=== PATIENT | female | born 1945 | race Caucasian/White ===

== ENCOUNTER 2018-03-11 09:20 | Day surgery (SDC) | payer MEDICARE, BC ==
[2018-03-11] MEDS ORDERED: Sodium Chloride 0.9% 5 ML Syringe FLUSH PRN (10:00)
[2018-03-11] MEDS ORDERED: Lactated Ringers 1,000 ML IV SCH (10:00)
[2018-03-11] MEDS ORDERED: Midazolam 1 MG/ML 2 ML SDV ONE (10:48)
[2018-03-11] MEDS ORDERED: Propofol 200 MG/20 ML SDV ONE ×2 (10:48→11:10)
[2018-03-11] MEDS ORDERED: Propofol 200 MG/20 ML SDV IV ONE (11:50)
[2018-03-11] MEDS ORDERED: Midazolam 1 MG/ML 2 ML SDV IV ONE (11:50)
--- NOTE | 2018-03-11 12:20 | PCM.OPNOTE ---
- General Post-Op/Procedure Note Date of Surgery/Procedure: 03/11/18 Operative Procedure(s): Colonoscopy, attempted. Findings: Possible stricture at the sigmoid colon Pre Op Diagnosis: Hemoccult-positive stool constipation Post-Op Diagnosis: Possible stricture the sigmoid colon Anesthesia Technique: MAC Primary Surgeon: Kalee Bynum Complications: None Condition: Good Free Text/Narrative:: INFORMED CONSENT: Patient is here today for elective colonoscopy. All aspects of this procedure have been discussed with the patient. All possible complications also, including possibility of perforation, infection, pain, bleeding and unknown complications. In the event of perforation patient may need to have abdominal exploration, colon resection, colostomy and even was discussed. Anesthetic complications were handled by anesthesia department. The patient understands fully well. Patient did not have any further questions for me at the end of my interview. The patient wishes for me to proceed. PREOPERATIVE DIAGNOSIS/INDICATIONS: [Hemoccult-positive stool and constipation screening colonoscopy, last colonoscopy 10 years ago] POSTOPERATIVE DIAGNOSIS: [Suspect stricture at the sigmoid colon or severe spasm] INSTRUMENT USED: Olympus videocolonoscope. ASA CLASSIFICATION: [2] ANESTHESIA: Continuous EKG, oximetry and intermittent blood pressure and respiratory monitoring were performed throughout the procedure. IV Versed and Fentanyl were administered. PROCEDURE PERFORMED: Colonoscopy POSITIONS OF PATIENT: Left lateral. RECTUM: Normal. SIGMOID COLON: A very tight area was noted approximately 30 cm from anal margin. Could not advance the scope beyond this area. The patient give a history of having had diverticulitis. TOLERANCE: Excellent. COMPLICATIONS: None. Final diagnosis: Suspect stricture or severe spasm at the sigmoid colon.
[2018-03-11 13:20] VITALS: BP 126/48
== END 2018-03-11 13:15 | disposition home or self-care (01) ==
LOC: KA.SDS 09:20
PROVIDERS: ATTEND Family Medicine
DX: R19.5 Other fecal abnormalities (principal); K59.00 Constipation, unspecified; K63.89 Other specified diseases of intestine; I10 Essential (primary) hypertension; J45.909 Unspecified asthma, uncomplicated; J41.0 Simple chronic bronchitis; F41.9 Anxiety disorder, unspecified; E78.5 Hyperlipidemia, unspecified; Z86.010 Personal history of colon polyps; Z79.82 Long term (current) use of aspirin; Z79.899 Other long term (current) drug therapy; Z88.8 Allergy status to other drugs, medicaments and biological substances; Z88.1 Allergy status to other antibiotic agents
CPT/HCPCS: 45330; J2250; J2704; J7120; 00812

== ENCOUNTER 2018-04-22 18:47 | Emergency (ER) | payer MEDICARE, BC ==
[2018-04-22] MEDS ORDERED: Albuterol/Ipratropium 3.0-0.5 MG/3 ML Neb Soln ONE (19:06)
[2018-04-22] MEDS ORDERED: Albuterol/Ipratropium 3.0-0.5 MG/3 ML Neb Soln NEB ONE (19:08)
[2018-04-22 19:13] VITALS: BP 155/73
[2018-04-22] MEDS ORDERED: methylPREDNISolone Sodium Succinate 125 MG/2 ML SDV IVPUSH ONE (19:40)
--- NOTE | 2018-04-22 19:46 | EDM.PDOC ---
ED HPI GENERAL MEDICAL PROBLEM - General Chief Complaint: Respiratory Problem Stated Complaint: asthma attack?? hard to breath Time Seen by Provider: 04/22/18 19:29 Source of Information: Reports: Patient History Limitations: Reports: No Limitations - History of Present Illness INITIAL COMMENTS - FREE TEXT/NARRATIVE: Patient presents with cough for 3 days. Today is worse she says. She has been using Mucinex which is helping loosen it up a little. She has asthma and says she typically gets a flare like this every Fall. She uses albuterol inhaler and albuterol neb at home. Nebs 1-2/day for maintenance and more often if needed. She has been using more the last few days. She says she usually gets prednisone for attacks like this. - Related Data Allergies Allergy/AdvReac Type Severity Reaction Status Date / Time cefdinir [From Omnicef] Allergy Diarrhea Verified 04/22/18 19:06 Nlfumxf-Vgi-Lel Reductase Allergy Cannot Verified 04/22/18 19:06 Inhibitor Remember Home Meds: Home Meds Albuterol [Ventolin HFA] 1 - 2 puff INH Q4HR PRN 10/05/14 [History] Albuterol/Ipratropium [DuoNeb 3.0-0.5 MG/3 ML] 3 ml NEB QID PRN 10/05/14 [ History] Aspirin [Halfprin] 81 mg PO DAILY 10/05/14 [History] Cholecalciferol (Vitamin D3) [Vitamin D3] 1,000 unit PO DAILY 10/05/14 [History] Fenofibrate 160 mg PO DAILY 10/05/14 [History] [place]-3/DHA/Epa/Fish Oil [[place]-3 Fish Oil 1,000 MG Sfgl] 1,000 mg PO DAILY 04/13 [History] Potassium Chloride [K-Tab ER] 10 meq PO DAILY 10/05/14 [History] hydroCHLOROthiazide [Hydrochlorothiazide] 25 mg PO DAILY 10/05/14 [History] Losartan [Cozaar] 25 mg PO DAILY 01/05/15 [History] Colestipol [Colestipol HCl] 1 gm PO DAILY 03/07/18 [History] Past Medical History HEENT History: Reports: Hard of Hearing, Impaired Vision Cardiovascular History: Reports: Hypertension Respiratory History: Reports: Asthma Gastrointestinal History: Reports: None Genitourinary History: Reports: Other (See Below) Other Genitourinary History: uterine bleeding,cervical polyp removal 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: Dysfunctional Uterine Bleeding, , Other (See Below) Other SIDEWALK INSPECTOR History: uterine mass Endocrine/Metabolic History: Reports: [place]'s Disease Hematologic History: Reports: Other (See Below) Other Hematologic History: uterine bleeding - Infectious Disease History Infectious Disease History: Reports: Measles, Mumps - Past Surgical History Head Surgeries/Procedures: Reports: None HEENT Surgical History: Reports: Other (See Below) Other HEENT Surgeries/Procedures: wisdom teeth Cardiovascular Surgical History: Reports: None Respiratory Surgical History: Reports: None GI Surgical History: Reports: Colonoscopy Female Surgical History: Reports: Other (See Below) Other Female Surgeries/Procedures: biopsy of uterine mass Endocrine Surgical History: Reports: None Dermatological Surgical History: Reports: None Social & Family History - Family History Family Medical History: Noncontributory - Caffeine Use Caffeine Use: Reports: Coffee, Soda, Tea ED ROS GENERAL - Review of Systems Review Of Systems: See Below Constitutional: Denies: Fever, Chills, Malaise, Weakness HEENT: Reports: No Symptoms. Denies: Ear Pain, Throat Pain Respiratory: Reports: Shortness of Breath, Wheezing (a little), Cough, Sputum Cardiovascular: Denies: Chest Pain, Lightheadedness, Syncope Endocrine: Reports: No Symptoms GI/Abdominal: Reports: No Symptoms : Reports: No Symptoms Musculoskeletal: Denies: Neck Pain, Shoulder Pain, Arm Pain, Back Pain, Hand Pain Skin: Denies: Cyanosis, Jaundice, Mottled, Pallor, Diaphoresis Neurological: Denies: Confusion, Dizziness, Headache, Seizure, Syncope, Difficulty Walking, Change in Speech Psychiatric: Denies: Agitation, Anxiety, Confusion ED EXAM, GENERAL - Physical Exam Exam: See Below Exam Limited By: No Limitations General Appearance: Alert, WD/WN, No Apparent Distress Eye Exam: Bilateral Eye: EOMI, Normal Inspection, PERRL Ears: Normal External Exam, Hearing Grossly Normal Nose: Normal Inspection, No Blood Throat/Mouth: Normal Inspection, Normal Lips, Normal Oropharynx, Normal Voice, No Airway Compromise Head: Atraumatic, Normocephalic Neck: Normal Inspection, Full Range of Motion Respiratory/Chest: No Respiratory Distress, Lungs Clear, Wheezing (slight left lung). No: Crackles, Rales, Rhonchi, Stridor, Accessory Muscle Use, Retractions Cardiovascular: Regular Rate, Rhythm, No Murmur GI/Abdominal: No Distention Back Exam: Normal Inspection, Full Range of Motion. No: CVA Tenderness (L), CVA Tenderness (R) Extremities: Normal Inspection, Normal Range of Motion Neurological: Alert, Oriented, Normal Cognition, No Motor/Sensory Deficits Psychiatric: Normal Affect, Normal Mood Skin Exam: Warm, Dry, Intact, Normal Color, No Rash Course - Vital Signs Last Recorded V/S: Last Vital Signs Temp 99.1 F 04/22/18 18:55 Pulse 90 04/22/18 18:55 Resp 22 H 04/22/18 18:55 BP 155/73 H 04/22/18 18:55 Pulse Ox 93 L 04/22/18 19:08 - Orders/Labs/Meds Orders: Active Orders 24 hr Category Date Time Status RT Aerosol Therapy [RC] ASDIRECTED Care 04/22/18 19:08 Active CXR [Chest 2V] [CR] Stat Exams 04/22/18 19:07 Taken Labs: Laboratory Tests 04/22/18 04/22/18 Range/Units 19:49 19:49 WBC 12.10 H (5.00-10.00) 10^3/uL RBC 4.63 (3.80-5.50) 10^6/uL Hgb 14.0 (12.0-16.0) g/dL Hct 42.3 (37.0-47.0) % MCV 91.4 (82.0-92.0) fL MCH 30.2 (27.0-31.0) pg MCHC 33.1 (32.0-36.0) g/dL RDW 12.7 (11.5-14.5) % Plt Count 462 H (150-400) 10^3/uL MPV 9.0 (7.4-10.4) fL Immature Gran % (Auto) 0.2 (0.0-5.0) % Neut % (Auto) 59.7 (50.0-70.0) % Lymph % (Auto) 29.1 (20.0-40.0) % [place] % (Auto) 7.7 (2.0-8.0) % Eos % (Auto) 2.6 (1.0-3.0) % Baso % (Auto) 0.7 (0.0-1.0) % Immature Gran # (Auto) 0.02 (0.00-0.50) 10^3/uL Neut # (Auto) 7.23 H (2.50-7.00) 10^3/uL Lymph # (Auto) 3.52 (1.00-4.00) 10^3/uL [place] # (Auto) 0.93 H (0.10-0.80) 10^3/uL Eos # (Auto) 0.32 H (0.10-0.30) 10^3/uL Baso # (Auto) 0.08 (0.00-0.10) 10^3/uL Sodium 141 (136-145) mmol/L Potassium 3.8 (3.3-5.3) mmol/L Chloride 102 (98-115) mmol/L Carbon Dioxide 25.9 (21.0-32.0) mmol/L Anion Gap 16.9 H (5-15) mmol/L BUN 20 (6-25) mg/dL Creatinine 0.75 (0.51-1.17) mg/dL Est Cr Clr Drug Dosing 62.80 mL/min Estimated GFR (MDRD) > 60 mL/min Glucose 123 mg/dL Calcium 9.9 (8.7-10.3) mg/dL Meds: Medications Discontinued Medications Generic Name Dose Route Start Last Admin Trade Name Freq PRN Reason Stop Dose Admin Albuterol/Ipratropium Confirm 04/22/18 19:06 04/22/18 19:28 Duoneb 3.0-0.5 Mg/3 Ml Administered 04/22/18 19:07 3 ml Dose Administration 3 ml .ROUTE .STK-MED ONE Albuterol/Ipratropium 3 ml 04/22/18 19:08 04/22/18 19:28 Duoneb 3.0-0.5 Mg/3 Ml NEB 04/22/18 19:09 Not Given ONETIME ONE Azithromycin 500 mg 04/22/18 20:40 04/22/18 21:16 Zithromax PO 04/22/18 20:41 500 mg ONETIME ONE Administration Methylprednisolone Sodium Succinate 125 mg 04/22/18 19:40 04/22/18 20:13 Solu-Medrol IVPUSH 04/22/18 19:41 125 mg ONETIME ONE Administration - Re-Assessments/Exams Free Text/Narrative Re-Assessment/Exam: 04/22/18 20:38 WBC is 12.1 which is at the low end of where she has been the last 5-6 checks but warrants antibiotic prophylaxis I feel. Will do Z-pack and prednisone. 04/22/18 21:20 O2 sats steady at 90% on RA. Discussed that this is the low end of where we want her to be and that she should come back if worsening. Discussed findings and treatment plan with patient and she is discharged in stable condition. Departure - Departure Time of Disposition: 21:18 Disposition: Home, Self-Care 01 Condition: Good Clinical Impression: Exacerbation of asthma Asthma Qualifiers: Asthma severity: mild Asthma persistence: unspecified Asthma complication type : unspecified Qualified Code(s): J45.998 - Other asthma Acute bronchitis Qualifiers: Bronchitis organism: unspecified organism Qualified Code(s): J20.9 - Acute bronchitis, unspecified - Discharge Information Instructions: Asthma, Adult, Acute Bronchitis, Adult Referrals: Alma Cade PA-C [Primary Care Provider] - Forms: ED Department Discharge Additional Instructions: 1. Drink 8 cups of water daily. 2. Take the medications as directed. 3. Follow up with your PCP or return to ER as needed if worsening. - My Orders Last 24 Hours: My Active Orders 04/22/18 19:07 CXR [Chest 2V] [CR] Stat 04/22/18 19:08 RT Aerosol Therapy [RC] ASDIRECTED - Assessment/Plan Last 24 Hours: My Active Orders 04/22/18 19:07 CXR [Chest 2V] [CR] Stat 04/22/18 19:08 RT Aerosol Therapy [RC] ASDIRECTED
[2018-04-22 20:22] LABS: ANION GAP 16.9 mmol/L (5-15); CHLORIDE,CL 102 mmol/L (98-115); SODIUM,NA 141 mmol/L (136-145)
[2018-04-22] MEDS ORDERED: Azithromycin 250 MG Tab PO ONE (20:40)
== END 2018-04-22 21:30 | disposition home or self-care (01) ==
LOC: KA.ED 18:47
DX: J45.901 Unspecified asthma with (acute) exacerbation (principal); J20.9 Acute bronchitis, unspecified
CPT/HCPCS: 36415; 71046; 80048; 85025; 94640; 96374; 99284; 99285; A9270-GY; J2930; J7620-GY

== ENCOUNTER 2019-08-31 09:14 | Emergency (ER) | payer MEDICARE, BC ==
[2019-08-31] MEDS ORDERED: Albuterol/Ipratropium 3.0-0.5 MG/3 ML Neb Soln ONE (09:20)
[2019-08-31] MEDS ORDERED: Albuterol/Ipratropium 3.0-0.5 MG/3 ML Neb Soln NEB ONE ×2 (09:20→11:26)
[2019-08-31 09:32] VITALS: BP 118/63
--- NOTE | 2019-08-31 10:22 | CR ---
[id number] RAD/RAD Chest PA And Lateral EXAM: RAD Chest PA And Lateral INDICATION: SHORTNESS OF BREATH, COUGH. COMPARISON: April 22, 2018. DISCUSSION: Cardiomediastinal silhouette is normal in size and contour. No infiltrate, effusion, pneumothorax, or edema. Pulmonary hyperinflation. IMPRESSION: No acute cardiopulmonary abnormality. Cory Campbell DO 08/31/19 1021 Thank you for allowing us to participate in the care of your patient.
--- NOTE | 2019-08-31 10:23 | EDM.PDOC ---
ED HPI GENERAL MEDICAL PROBLEM - General Chief Complaint: General Stated Complaint: BAD COUGH Time Seen by Provider: 08/31/19 09:30 Source of Information: Reports: Patient - History of Present Illness INITIAL COMMENTS - FREE TEXT/NARRATIVE: 74-year-old female presents emergency room with a history of 48 hour complaint of increasing shortness of breath, cough and wheezing. He denies any fever chills nausea or vomiting. She was unable to get into her primary care Sunday at the end of the day. She was plan on make an appointment this Sunday. Her symptoms seem to gradually worsened to the point where she was having increasing difficulty moving air despite doing her nebulizer treatment. She denies any significant sinus congestion, no ear pain, no sore throat. Onset: Gradual Onset Date: 09/12/19 Duration: Day(s):, Getting Worse Location: Reports: Chest Severity: Moderate Improves with: Reports: Other (Neb treatments) Worsens with: Reports: None Associated Symptoms: Reports: Cough, Shortness of Breath. Denies: Fever/Chills , Nausea/Vomiting Treatments CARD MOUNTER: Reports: Other (see below) (Neb treatments) - Related Data Allergies Allergy/AdvReac Type Severity Reaction Status Date / Time cefdinir [From Omnicef] Allergy Diarrhea Verified 04/22/18 19:06 Henfqlq-Wlj-Gho Reductase Allergy Cannot Verified 04/22/18 19:06 Inhibitor Remember Home Meds: Home Meds Albuterol [Ventolin HFA] 2 puff INH Q4HR PRN 10/05/14 [History] Albuterol/Ipratropium [DuoNeb 3.0-0.5 MG/3 ML] 3 ml NEB QID PRN 10/05/14 [ History] Aspirin [Halfprin] 81 mg PO DAILY 10/05/14 [History] Cholecalciferol (Vitamin D3) [Vitamin D3] 1,000 unit PO DAILY 10/05/14 [History] Fenofibrate 160 mg PO DAILY 10/05/14 [History] [place]-3/DHA/Epa/Fish Oil [[place]-3 Fish Oil 1,000 MG Sfgl] 1,000 mg PO DAILY 04/13 [History] Potassium Chloride [K-Tab ER] 10 meq PO DAILY 10/05/14 [History] hydroCHLOROthiazide [Hydrochlorothiazide] 25 mg PO DAILY 03/09/15 [History] Losartan [Cozaar] 25 mg PO DAILY 01/05/15 [History] Colestipol [Colestipol HCl] 1 gm PO DAILY 03/07/18 [History] predniSONE [Prednisone] 40 mg PO DAILY #10 tablet 08/31/19 [Rx] Past Medical History HEENT History: Reports: Hard of Hearing, Impaired Vision Cardiovascular History: Reports: Hypertension Respiratory History: Reports: Asthma Gastrointestinal History: Reports: None Genitourinary History: Reports: Other (See Below) Other Genitourinary History: uterine bleeding,cervical polyp removal 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: Dysfunctional Uterine Bleeding, , Other (See Below) 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 History: uterine mass Endocrine/Metabolic History: Reports: [place]'s Disease Hematologic History: Reports: Other (See Below) Other Hematologic History: uterine bleeding - Infectious Disease History Infectious Disease History: Reports: Measles, Mumps - Past Surgical History Head Surgeries/Procedures: Reports: None HEENT Surgical History: Reports: Other (See Below) Other HEENT Surgeries/Procedures: wisdom teeth Cardiovascular Surgical History: Reports: None Respiratory Surgical History: Reports: None GI Surgical History: Reports: Colonoscopy Female Surgical History: Reports: Other (See Below) Other Female Surgeries/Procedures: biopsy of uterine mass Endocrine Surgical History: Reports: None Dermatological Surgical History: Reports: None Social & Family History - Family History Family Medical History: Noncontributory - Tobacco Use Smoking Status *Q: Former Smoker Used Tobacco, but Quit: Yes Month/Year Tobacco Last Used: quit 30 years ago Second Hand Smoke Exposure: No - Caffeine Use Caffeine Use: Reports: Coffee, Soda, Tea - Recreational Drug Use Recreational Drug Use: No ED ROS GENERAL - Review of Systems Review Of Systems: See Below Constitutional: Reports: No Symptoms HEENT: Reports: Glasses Respiratory: Reports: Shortness of Breath, Wheezing, Cough Cardiovascular: Denies: Chest Pain, Blood Pressure Problem Endocrine: Reports: No Symptoms GI/Abdominal: Reports: No Symptoms : Reports: No Symptoms Musculoskeletal: Reports: No Symptoms Skin: Reports: No Symptoms Neurological: Reports: No Symptoms Psychiatric: Reports: No Symptoms Hematologic/Lymphatic: Reports: No Symptoms Immunologic: Reports: No Symptoms ED EXAM, GENERAL - Physical Exam Exam: See Below Exam Limited By: No Limitations General Appearance: Alert, WD/WN, No Apparent Distress Eye Exam: Bilateral Eye: EOMI, PERRL Ears: Normal External Exam, Normal Canal, Normal TMs, Hearing Loss Ear Exam: Bilateral Ear: Canal Normal, TM normal Nose: Normal Inspection, Normal Mucosa Throat/Mouth: Normal Inspection, Normal Lips, Normal Oropharynx, Normal Voice, No Airway Compromise Head: Atraumatic, Normocephalic Neck: Normal Inspection, Supple, Non-Tender, Full Range of Motion. No: Lymphadenopathy (L), Lymphadenopathy (R) Respiratory/Chest: No Respiratory Distress, Decreased Breath Sounds. No: Crackles, Rales, Rhonchi, Wheezing Cardiovascular: Normal Peripheral Pulses, Regular Rate, Rhythm, No Edema GI/Abdominal: Normal Bowel Sounds, Soft Extremities: Normal Inspection, Normal Range of Motion Neurological: Alert, Oriented, No Motor/Sensory Deficits Psychiatric: Normal Affect, Normal Mood Skin Exam: Warm, Dry, Intact, Normal Color, No Rash Lymphatic: No Adenopathy Course - Vital Signs Last Recorded V/S: Last Vital Signs Temp 99.0 F 08/31/19 09:29 Pulse 95 08/31/19 10:47 Resp 20 08/31/19 09:29 BP 118/63 08/31/19 09:29 Pulse Ox 97 08/31/19 09:29 - Orders/Labs/Meds Orders: Active Orders 24 hr Category Date Time Status RT Aerosol Therapy [RC] ASDIRECTED Care 08/31/19 09:28 Active RT Aerosol Therapy [RC] ASDIRECTED Care 08/31/19 10:30 Active RT Aerosol Therapy [RC] ASDIRECTED Care 08/31/19 11:26 Active Labs: Laboratory Tests 08/31/19 08/31/19 Range/Units 09:55 09:55 WBC 8.37 (5.00-10.00) 10^3/uL RBC 4.52 (3.80-5.50) 10^6/uL Hgb 13.3 (12.0-16.0) g/dL Hct 40.2 (37.0-47.0) % MCV 88.9 (82.0-92.0) fL MCH 29.4 (27.0-31.0) pg MCHC 33.1 (32.0-36.0) g/dL RDW 12.7 (11.5-14.5) % Plt Count 422 H (150-400) 10^3/uL MPV 8.9 (7.4-10.4) fL Immature Gran % (Auto) 0.1 (0.0-5.0) % Neut % (Auto) 60.3 (50.0-70.0) % Lymph % (Auto) 25.9 (20.0-40.0) % [place] % (Auto) 10.2 H (2.0-8.0) % Eos % (Auto) 2.4 (1.0-3.0) % Baso % (Auto) 1.1 H (0.0-1.0) % Immature Gran # (Auto) 0.01 (0.00-0.50) 10^3/uL Neut # (Auto) 5.05 (2.50-7.00) 10^3/uL Lymph # (Auto) 2.17 (1.00-4.00) 10^3/uL [place] # (Auto) 0.85 H (0.10-0.80) 10^3/uL Eos # (Auto) 0.20 (0.10-0.30) 10^3/uL Baso # (Auto) 0.09 (0.00-0.10) 10^3/uL Sodium 138 (136-145) mmol/L Potassium 3.3 (3.3-5.3) mmol/L Chloride 99 (98-115) mmol/L Carbon Dioxide 25.8 (21.0-32.0) mmol/L Anion Gap 16.5 H (5-15) mmol/L BUN 13 (6-25) mg/dL Creatinine 0.52 (0.51-1.17) mg/dL Est Cr Clr Drug Dosing 88.00 mL/min Estimated GFR (MDRD) > 60 mL/min Glucose 130 H (75 - 99) mg/dL Calcium 9.5 (8.7-10.3) mg/dL Meds: Medications Discontinued Medications Generic Name Dose Route Start Last Admin Trade Name Freq PRN Reason Stop Dose Admin Albuterol 2.5 mg 08/31/19 10:30 08/31/19 10:40 Proventil Neb Soln NEB 08/31/19 10:31 2.5 mg ONETIME ONE Administration Albuterol/Ipratropium Confirm 08/31/19 09:20 08/31/19 10:03 Duoneb 3.0-0.5 Mg/3 Ml Administered 02/02/20 09:21 Not Given Dose 3 ml .ROUTE .STK-MED ONE Albuterol/Ipratropium 3 ml 08/31/19 09:20 08/31/19 09:20 Duoneb 3.0-0.5 Mg/3 Ml NEB 08/31/19 09:21 3 ml ONETIME ONE Administration Albuterol/Ipratropium 3 ml 08/31/19 11:26 08/31/19 11:51 Duoneb 3.0-0.5 Mg/3 Ml NEB 08/31/19 11:27 3 ml ONETIME ONE Administration Methylprednisolone Sodium Succinate 125 mg 08/31/19 10:29 08/31/19 10:40 Solu-Medrol IVPUSH 08/31/19 10:30 125 mg ONETIME ONE Administration - Radiology Interpretation Free Text/Narrative:: CXR: findings: Cardiomediastinal silhouette is normal in size and contour. No infiltrate, effusion, pneumothorax, or edema. Pulmonary hyperinflation Impression: No acute cardiopulmonary abnormality CT Results Date: 08/31/19 Departure - Departure Time of Disposition: 12:05 Disposition: Home, Self-Care 01 Condition: Good Clinical Impression: Asthma with acute exacerbation Qualifiers: Asthma severity: moderate Asthma persistence: unspecified Qualified Code(s): J45.901 - Unspecified asthma with (acute) exacerbation - Discharge Information Prescriptions: predniSONE [Prednisone] 40 mg PO DAILY #10 tablet Instructions: Asthma Attack Referrals: Alma Cade PA-C [Primary Care Provider] - Forms: ED Department Discharge Sepsis Event Note - Evaluation Sepsis Screening Result: No Definite Risk - Focused Exam Vital Signs: Vital Signs Temp Pulse Resp BP Pulse Ox 08/31/19 10:47 95 08/31/19 09:29 99.0 F 104 H 20 118/63 97 08/31/19 09:28 108 H Date Exam was Performed: 08/31/19 Time Exam was Performed: 12:05 - My Orders Last 24 Hours: My Active Orders 08/31/19 09:28 RT Aerosol Therapy [RC] ASDIRECTED 08/31/19 10:30 RT Aerosol Therapy [RC] ASDIRECTED 08/31/19 11:26 RT Aerosol Therapy [RC] ASDIRECTED - Assessment/Plan Last 24 Hours: My Active Orders 08/31/19 09:28 RT Aerosol Therapy [RC] ASDIRECTED 08/31/19 10:30 RT Aerosol Therapy [RC] ASDIRECTED 08/31/19 11:26 RT Aerosol Therapy [RC] ASDIRECTED Assessment:: asthma exacerbation Plan: 1. Duo nebs every 4 hours while awake over the next 24 hours 2. Prednisone 40 mg daily for 5 days. 3. Follow-up with your primary care next week for recheck 4. Return back to the emergency room if breathing, shortness of breath worsens despite duo neb treatments.
[2019-08-31 10:27] LABS: ANION GAP 16.5 mmol/L (5-15); CHLORIDE,CL 99 mmol/L (98-115); SODIUM,NA 138 mmol/L (136-145)
[2019-08-31] MEDS ORDERED: methylPREDNISolone Sodium Succinate 125 MG/2 ML SDV IVPUSH ONE (10:29)
[2019-08-31] MEDS ORDERED: Albuterol 0.083% 2.5 MG/3 ML Neb Soln NEB ONE (10:30)
[2019-08-31 10:55] VITALS: PULSE 95
== END 2019-08-31 12:10 | disposition home or self-care (01) ==
LOC: KA.ED 09:14
DX: J45.901 Unspecified asthma with (acute) exacerbation (principal); I10 Essential (primary) hypertension; Z79.82 Long term (current) use of aspirin; Z79.899 Other long term (current) drug therapy; Z87.891 Personal history of nicotine dependence; Z88.1 Allergy status to other antibiotic agents; Z88.8 Allergy status to other drugs, medicaments and biological substances
CPT/HCPCS: 71046; 80048; 85025; 87804; 94640; 96374; 99284; 99285-25; J2930; J7613-GY; J7620-GY

== ENCOUNTER 2019-09-03 08:27 | Inpatient (IN) | payer MEDICARE, BC ==
[2019-09-03] MEDS ORDERED: Dexamethasone 4 MG/ML SDV IVPUSH ONE (09:17)
[2019-09-03] MEDS ORDERED: Sodium Chloride 0.9% 1,000 ML IV ONE (09:17)
--- NOTE | 2019-09-03 09:19 | CR ---
[id number] RAD/RAD Chest PA And Lateral EXAM: RAD Chest PA And Lateral INDICATION: SHORTNESS OF BREATH. COMPARISON: August 31, 2019. DISCUSSION: Cardiomediastinal silhouette is unchanged from the prior examination. COPD. Subsegmental atelectasis in the right middle and/or upper lobe not seen previously. No infiltrate, effusion, pneumothorax, or edema. IMPRESSION: No acute findings. Other findings are described. Viral Schuler MD 09/03/19 0918 Thank you for allowing us to participate in the care of your patient.
[2019-09-03] MEDS: Sodium Chloride 0.9% 10 ML Syringe FLUSH PRN (09:21)
--- NOTE | 2019-09-03 09:51 | EDM.PDOC ---
ED HPI GENERAL MEDICAL PROBLEM - General Chief Complaint: Respiratory Problem Stated Complaint: SOB Time Seen by Provider: 09/03/19 09:17 Source of Information: Reports: Patient History Limitations: Reports: No Limitations - History of Present Illness INITIAL COMMENTS - FREE TEXT/NARRATIVE: Patient is a 74-year-old female who presents to the emergency department via private vehicle for complaint of shortness of breath. Patient was seen in the emergency department August 31 for similar symptoms. Patient was treated with nebulizer treatments, improved, and was discharged home. Patient states that symptoms persisted. She did 4 breathing treatments this morning with little to no relief. Patient presents to the emergency Department with an oxygen saturation of 86% on room air. Patient required 4 L nasal cannula to improve. Oxygen saturation of 91-92%. Patient was found to be tachycardic with mild tachypnea. Patient does have a long history of asthma. Patient denies chest pain, fever, out of country travel, nausea, vomiting, diarrhea, abdominal pain, lower extremity edema, or change to medication. Onset: Gradual Duration: Day(s): Severity: Moderate Improves with: Reports: None Worsens with: Reports: None Context: Reports: Other (At rest) Associated Symptoms: Reports: Cough, Shortness of Breath. Denies: Chest Pain, cough w sputum, Diaphoresis, Fever/Chills, Headaches, Nausea/Vomiting, Syncope, Weakness Treatments SAP BI ARCHITECT: Reports: Breathing Treatments, Home Treatments - Related Data Allergies Allergy/AdvReac Type Severity Reaction Status Date / Time cefdinir [From Omnicef] Allergy Diarrhea Verified 09/03/19 09:05 Tblzmyg-Frb-Ick Reductase Allergy Cannot Verified 09/03/19 09:05 Inhibitor Remember Home Meds: Home Meds Albuterol [Ventolin HFA] 2 puff INH Q4HR PRN 10/05/14 [History] Albuterol/Ipratropium [DuoNeb 3.0-0.5 MG/3 ML] 3 ml NEB QID PRN 10/05/14 [ History] Aspirin [Halfprin] 81 mg PO DAILY 10/05/14 [History] Cholecalciferol (Vitamin D3) [Vitamin D3] 1,000 unit PO DAILY 10/05/14 [History] Fenofibrate 160 mg PO DAILY 10/05/14 [History] [place]-3/DHA/Epa/Fish Oil [[place]-3 Fish Oil 1,000 MG Sfgl] 1,000 mg PO DAILY 04/13 [History] Potassium Chloride [K-Tab ER] 10 meq PO DAILY 10/05/14 [History] hydroCHLOROthiazide [Hydrochlorothiazide] 25 mg PO DAILY 10/05/14 [History] Losartan [Cozaar] 25 mg PO DAILY 01/05/15 [History] Colestipol [Colestipol HCl] 1 gm PO DAILY 03/07/18 [History] Past Medical History HEENT History: Reports: Hard of Hearing, Impaired Vision Cardiovascular History: Reports: Hypertension Respiratory History: Reports: Asthma Gastrointestinal History: Reports: None Genitourinary History: Reports: Other (See Below) Other Genitourinary History: uterine bleeding,cervical polyp removal [employer] 1 [employer] 5 [employer]ER History: Reports: Dysfunctional Uterine Bleeding, , Other (See Below) Other [employer] 1 [employer]RU 5 [employer]ER History: uterine mass Endocrine/Metabolic History: Reports: None Hematologic History: Reports: Other (See Below) Other Hematologic History: uterine bleeding - Infectious Disease History Infectious Disease History: Reports: Measles, Mumps - Past Surgical History Head Surgeries/Procedures: Reports: None HEENT Surgical History: Reports: Other (See Below) Other HEENT Surgeries/Procedures: wisdom teeth Cardiovascular Surgical History: Reports: None Respiratory Surgical History: Reports: None GI Surgical History: Reports: Colonoscopy Female Surgical History: Reports: Other (See Below) Other Female Surgeries/Procedures: biopsy of uterine mass Endocrine Surgical History: Reports: None Dermatological Surgical History: Reports: None Social & Family History - Family History Family Medical History: Noncontributory - Tobacco Use Smoking Status *Q: Former Smoker Used Tobacco, but Quit: No - Caffeine Use Caffeine Use: Reports: Coffee, Soda - Recreational Drug Use Recreational Drug Use: No ED ROS GENERAL - Review of Systems Review Of Systems: Comprehensive ROS is negative, except as noted in HPI. Constitutional: Reports: No Symptoms HEENT: Reports: No Symptoms Respiratory: Reports: Shortness of Breath, Wheezing, Cough Cardiovascular: Reports: No Symptoms. Denies: Chest Pain Endocrine: Reports: No Symptoms GI/Abdominal: Reports: No Symptoms : Reports: No Symptoms Musculoskeletal: Reports: No Symptoms Skin: Reports: No Symptoms Neurological: Reports: No Symptoms Psychiatric: Reports: No Symptoms Hematologic/Lymphatic: Reports: No Symptoms Immunologic: Reports: No Symptoms ED EXAM, GENERAL - Physical Exam Exam: See Below Exam Limited By: No Limitations General Appearance: Alert, WD/WN, No Apparent Distress Eye Exam: Bilateral Eye: Normal Inspection Nose: Normal Inspection, Normal Mucosa, No Blood Throat/Mouth: Normal Inspection, Normal Oropharynx, No Airway Compromise Head: Atraumatic, Normocephalic Neck: Normal Inspection, Supple, Non-Tender, Full Range of Motion. No: Lymphadenopathy (L), Lymphadenopathy (R) Respiratory/Chest: No Respiratory Distress, No Accessory Muscle Use, Chest Non- Tender, Decreased Breath Sounds (Bilateral), Wheezing (End expiratory). No: Normal Breath Sounds, Respiratory Distress Cardiovascular: Regular Rate, Rhythm, No Murmur GI/Abdominal: Normal Bowel Sounds, Soft, Non-Tender, No Organomegaly, No Distention, No Abnormal Bruit, No Mass Back Exam: Normal Inspection. No: CVA Tenderness (L), CVA Tenderness (R) Extremities: Normal Inspection, No Pedal Edema Neurological: Alert, Oriented, Normal Cognition Psychiatric: Normal Affect, Normal Mood Skin Exam: Warm, Dry, Intact, Normal Color, No Rash Lymphatic: No Adenopathy EKG INTERPRETATION EKG Date: 09/03/19 Time: 09:25 Rhythm: Other (Sinus tach) Rate (Beats/Min): 103 [place]: Normal P-Wave: Present QRS: Normal ST-T: Normal QT: Normal Comparison: No Change Course - Vital Signs Last Recorded V/S: Last Vital Signs Temp 98.7 F 09/03/19 08:30 Pulse 105 H 09/03/19 10:33 Resp 24 H 09/03/19 10:33 BP 146/75 H 09/03/19 10:33 Pulse Ox 91 L 09/03/19 10:33 - Orders/Labs/Meds Orders: Active Orders 24 hr Category Date Time Status EKG Documentation Completion [RC] ASDIRECTED Care 09/03/19 09:15 Active Peripheral IV Care [RC] . DIRECTED Care 09/03/19 09:17 Active Sodium Chloride 0.9% [Saline Flush] Med 09/03/19 09:17 Active 10 ml FLUSH Q8HR PRN Peripheral IV Insertion Adult [OM.PC] Routine Oth 09/03/19 09:17 Ordered EKG 12 Lead [EK] Routine Ther 09/03/19 09:15 Ordered Medication Orders Sodium Chloride (Saline Flush) 10 ml FLUSH Q8HR PRN PRN Reason: keep vein open Last Admin: 09/03/19 09:21 Dose: 10 ml Labs: Laboratory Tests 09/03/19 Range/Units 10:35 ABG pH 7.40 (7.35-7.45) ABG pCO2 36 (35-45) mmHG ABG pO2 63 L (80-105) mmHG ABG HCO3 22.7 (22-26) mmol/L ABG Total CO2 24 (23-27) mmol/L ABG O2 Saturation 92 L (95-98) % ABG Base Excess -2 (-2-3) mmol/L O2 Delivery Device Nasal cannula Oxygen Flow Rate 3 L/min Meds: Medications Generic Name Dose Route Start Last Admin Trade Name Freq PRN Reason Stop Dose Admin Sodium Chloride 10 ml 09/03/19 09:17 09/03/19 09:21 Saline Flush FLUSH 10 ml Q8HR PRN Administration keep vein open Discontinued Medications Generic Name Dose Route Start Last Admin Trade Name Freq PRN Reason Stop Dose Admin Dexamethasone 8 mg 09/03/19 09:17 09/03/19 09:23 Dexamethasone IVPUSH 09/03/19 09:18 8 mg ONETIME ONE Administration Sodium Chloride 1,000 mls @ 999 mls/hr 09/03/19 09:17 09/03/19 09:24 Normal Saline IV 09/03/19 10:17 999 mls/hr .BOLUS ONE Administration - Radiology Interpretation Free Text/Narrative:: 6. He shows no acute cardiopulmonary process - Re-Assessments/Exams Free Text/Narrative Re-Assessment/Exam: 09/03/19 10:22 Patient afebrile, vital signs stable, oxygen saturation 91% on 3 L nasal cannula. ABG within normal limits. Discussed case with [facility] provider. Patient will be admitted inpatient to his service. 09/03/19 10:47 Departure - Departure Time of Disposition: 10:47 Disposition: Admitted As Inpatient 68 Condition: Fair Clinical Impression: Hypoxemia Asthma with acute exacerbation Qualifiers: Asthma severity: moderate Asthma persistence: unspecified Qualified Code(s): J45.901 - Unspecified asthma with (acute) exacerbation - Discharge Information Referrals: Nurys Hinson MD [Primary Care Provider] - Forms: ED Department Discharge Sepsis Event Note - Evaluation Sepsis Screening Result: Possible Sepsis Risk - Focused Exam Vital Signs: Vital Signs Temp Pulse Resp BP Pulse Ox 09/03/19 10:33 105 H 24 H 146/75 H 91 L 09/03/19 09:35 103 H 21 H 135/92 H 91 L 09/03/19 09:20 109 H 33 H 149/81 H 93 L 09/03/19 08:55 111 H 28 H 155/75 H 91 L 09/03/19 08:30 98.7 F 130 H 29 H 157/62 H 86 L Date Exam was Performed: 09/03/19 Time Exam was Performed: 10:48 - My Orders Last 24 Hours: My Active Orders 09/03/19 09:15 EKG Documentation Completion [RC] ASDIRECTED EKG 12 Lead [EK] Routine 09/03/19 09:17 Peripheral IV Care [RC] . DIRECTED Sodium Chloride 0.9% [Saline Flush] 10 ml FLUSH Q8HR PRN Peripheral IV Insertion Adult [OM.PC] Routine - Assessment/Plan Last 24 Hours: My Active Orders 09/03/19 09:15 EKG Documentation Completion [RC] ASDIRECTED EKG 12 Lead [EK] Routine 09/03/19 09:17 Peripheral IV Care [RC] . DIRECTED Sodium Chloride 0.9% [Saline Flush] 10 ml FLUSH Q8HR PRN Peripheral IV Insertion Adult [OM.PC] Routine Assessment:: Asthma exacerbation Plan: Admit inpatient
[2019-09-03 10:40] LABS: O2 DELIVERY DEVICE NASAL CANNULA; O2 SATURATION ARTERIAL 92 % (95-98); PCO2 ARTERIAL 36 mmHG (35-45); PO2 ARTERIAL 63 mmHG (80-105)
[2019-09-03 10:41] LABS: BASE EXCESS ARTERIAL -2 mmol/L (-2-3); BICARBONATE,ARTERIAL 22.7 mmol/L (22-26); O2 FLOW RATE 3 L/min
[2019-09-03] MEDS ORDERED: Albuterol/Ipratropium 3.0-0.5 MG/3 ML Neb Soln NEB STA (11:15)
[2019-09-03] MEDS ORDERED: Magnesium Sulfate/Water 2 GM in Premix Bag 1 BAG IV ONE (11:19)
--- NOTE | 2019-09-03 11:27 | PCM.HP.2 ---
H&P History of Present Illness - General Date of Service: 09/03/19 Admit Problem/Dx: Admission Diagnosis/Problem Admission Diagnosis/Problem Asthma with acute exacerbation in adult Source of Information: Patient, Old Records, Provider, RN, Significant Other History Limitations: Reports: No Limitations. Denies: Altered Mental Status - Related Data Allergies/Adverse Reactions: Allergies Allergy/AdvReac Type Severity Reaction Status Date / Time cefdinir [From Omnicef] Allergy Diarrhea Verified 09/03/19 09:05 Flmrjcb-Rut-Tgb Reductase Allergy Cannot Verified 09/03/19 09:05 Inhibitor Remember Home Medications: Home Meds Albuterol [Ventolin HFA] 2 puff INH Q4HR PRN 10/05/14 [History] Albuterol/Ipratropium [DuoNeb 3.0-0.5 MG/3 ML] 3 ml NEB QID PRN 10/05/14 [ History] Aspirin [Halfprin] 81 mg PO DAILY 10/05/14 [History] Cholecalciferol (Vitamin D3) [Vitamin D3] 1,000 unit PO DAILY 10/05/14 [History] Fenofibrate 160 mg PO DAILY 10/05/14 [History] [place]-3/DHA/Epa/Fish Oil [[place]-3 Fish Oil 1,000 MG Sfgl] 1,000 mg PO DAILY 04/13 [History] Potassium Chloride [K-Tab ER] 10 meq PO DAILY 10/05/14 [History] hydroCHLOROthiazide [Hydrochlorothiazide] 25 mg PO DAILY 10/05/14 [History] Losartan [Cozaar] 25 mg PO DAILY 01/05/15 [History] Colestipol [Colestipol HCl] 1 gm PO DAILY 03/07/18 [History] Past Medical History HEENT History: Reports: Hard of Hearing, Impaired Vision Cardiovascular History: Reports: Hypertension Respiratory History: Reports: Asthma Gastrointestinal History: Reports: None Genitourinary History: Reports: Other (See Below) Other Genitourinary History: uterine bleeding,cervical polyp removal [employer]ENT History: Reports: Dysfunctional Uterine Bleeding, , Other (See Below) Other OB/BYN History: uterine mass Endocrine/Metabolic History: Reports: None Hematologic History: Reports: Other (See Below) Other Hematologic History: uterine bleeding - Infectious Disease History Infectious Disease History: Reports: Measles, Mumps - Past Surgical History Head Surgeries/Procedures: Reports: None HEENT Surgical History: Reports: Other (See Below) Other HEENT Surgeries/Procedures: wisdom teeth Cardiovascular Surgical History: Reports: None Respiratory Surgical History: Reports: None GI Surgical History: Reports: Colonoscopy Female Surgical History: Reports: Other (See Below) Other Female Surgeries/Procedures: biopsy of uterine mass Endocrine Surgical History: Reports: None Dermatological Surgical History: Reports: None Social & Family History - Family History Family Medical History: Noncontributory - Tobacco Use Smoking Status *Q: Former Smoker Used Tobacco, but Quit: No - Caffeine Use Caffeine Use: Reports: Coffee, Soda - Recreational Drug Use Recreational Drug Use: No H&P Review of Systems - Review of Systems: Review Of Systems: See Below General: Denies: Fever, Chills, Malaise, Weakness, Fatigue, Night Sweats HEENT: Reports: Hearing Changes (admits to muffled hearing since last ED visit ) Pulmonary: Reports: Shortness of Breath, Wheezing. Denies: Cough, Sputum, Hemoptysis Cardiovascular: Reports: No Symptoms, Dyspnea on Exertion Gastrointestinal: Reports: No Symptoms Genitourinary: Reports: No Symptoms Musculoskeletal: Reports: No Symptoms Skin: Reports: No Symptoms Psychiatric: Reports: No Symptoms Neurological: Reports: No Symptoms Immunologic: Reports: No Symptoms Exam - Exam Exam: See Below - Vital Signs Vital Signs: Last Vital Signs Temp 98.7 F 09/03/19 08:30 Pulse 105 H 09/03/19 10:33 Resp 24 H 09/03/19 10:33 BP 146/75 H 09/03/19 10:33 Pulse Ox 91 L 09/03/19 10:33 Weight: 156 lb - Exam Quality Assessment: Supplemental Oxygen General: Moderate Distress HEENT: Mucosa Moist & [place] Neck: Supple Lungs: Decreased Breath Sounds. No: Wheezing Cardiovascular: Tachycardia GI/Abdominal Exam: Normal Bowel Sounds, Soft, No Distention, No Mass. No: Distended (Female) Exam: Deferred Back Exam: No: CVA Tenderness (L), CVA Tenderness (R) Extremities: No Pedal Edema Peripheral Pulses: 2+: Radial (L), Radial (R) Skin: Dry Neurological: Cranial Nerves Intact, Reflexes Equal Bilateral Neuro Extensive - Mental Status: Alert, Oriented x3, Normal Mood/Affect, Memory Intact, Other Neuro Extensive - Motor, Sensory, Reflexes: Normal Gait Psychiatric: Anxious, Agitated - Patient Data Lab Results Last 24 hrs: Laboratory Results - last 24 hr 09/03/19 Range/Units 10:35 ABG pH 7.40 (7.35-7.45) ABG pCO2 36 (35-45) mmHG ABG pO2 63 L (80-105) mmHG ABG HCO3 22.7 (22-26) mmol/L ABG Total CO2 24 (23-27) mmol/L ABG O2 Saturation 92 L (95-98) % ABG Base Excess -2 (-2-3) mmol/L O2 Delivery Device Nasal cannula Oxygen Flow Rate 3 L/min [place] Results Last 24 hrs: Microbiology 09/03/19 08:35 Influenza Type A Antigen Screen - Final Nasopharyngeal Swab NEGATIVE INFLUENZA A VIRUS AG REFERENCE RANGE: NEGATIVE Influenza Type B Antigen Screen - Final NEGATIVE INFLUENZA B VIRUS AG REFERENCE RANGE: NEGATIVE Sepsis Event Note - Evaluation Sepsis Screening Result: Possible Sepsis Risk - Focused Exam Vital Signs: Vital Signs Temp Pulse Resp BP Pulse Ox 09/03/19 10:33 105 H 24 H 146/75 H 91 L 09/03/19 09:35 103 H 21 H 135/92 H 91 L 09/03/19 09:20 109 H 33 H 149/81 H 93 L 09/03/19 08:55 111 H 28 H 155/75 H 91 L 09/03/19 08:30 98.7 F 130 H 29 H 157/62 H 86 L Date Exam was Performed: 09/03/19 Time Exam was Performed: 11:29 Problem List Initiated/Reviewed/Updated: Yes Orders Last 24hrs: Active Orders 24 hr Category Date Time Status Patient Status [ADT] Routine ADT 09/03/19 10:48 Active EKG Documentation Completion [RC] ASDIRECTED Care 09/03/19 09:15 Active Oxygen Therapy [RC] PRN Care 09/03/19 10:48 Active Peripheral IV Care [RC] . DIRECTED Care 09/03/19 09:17 Active VTE/DVT Education [RC] PER UNIT ROUTINE Care 09/03/19 10:48 Active Vital Signs [RC] Q4H Care 09/03/19 10:48 Active Sodium Chloride 0.9% [Saline Flush] Med 09/03/19 09:17 Active 10 ml FLUSH Q8HR PRN Peripheral IV Insertion Adult [OM.PC] Routine Oth 09/03/19 09:17 Ordered Resuscitation Status Routine Resus Stat 09/03/19 10:48 Ordered EKG 12 Lead [EK] Routine Ther 09/03/19 09:15 Ordered Medication Orders Sodium Chloride (Saline Flush) 10 ml FLUSH Q8HR PRN PRN Reason: keep vein open Last Admin: 09/03/19 09:21 Dose: 10 ml Assessment/Plan Comment:: History of present illness Aayka is a 74-year-old female who was admitted through the ED due to significant shortness of breath. Patient had presented to the ED on August 31 with similar symptoms and was treated with duo nebulizers and she improved in which she was sent home to self-care however she stated that her symptoms persisted despite using her albuterol "multiple times" she does have asthma and takes short acting MIC/LAMA the form of duo nebs 4 times a day. Appears she is not on asthma control medication. At one point she was on home oxygen however she sent it back. She gets ill fall/wintertime with similar symptoms. No PFTs on file however does have current asthma control test. Does not do home PFTs. Remote smoker as a young child likely 1 to 2 years max ED evaluation Hypoxic POX 86% Tachycardia/Tachypneic ABG, pH 7.4, CO2 36, PO2 63, HCO3 23 Primary hospital problems --Asthma with acute exacerbation, significant, continuous DuoNeb's, magnesium 2 g x 1 now, oxygen support, hold off on diet, monitor for impending respiratory failure. Peak flow test 115 now. Repeat every 20 minutes.
[2019-09-03] MEDS ORDERED: Albuterol/Ipratropium 3.0-0.5 MG/3 ML Neb Soln NEB ONE ×3 (11:35→21:43)
[2019-09-03] MEDS: Sodium Chloride 0.9% 100 ML IV SCH (11:44)
[2019-09-03] MEDS: Albuterol/Ipratropium 3.0-0.5 MG/3 ML Neb Soln NEB SCH ×6 (13:25→23:56)
[2019-09-03 13:26] LABS: ANION GAP 16.8 mmol/L (5-15); CHLORIDE,CL 98 mmol/L (98-115); SODIUM,NA 137 mmol/L (136-145)
[2019-09-03] MEDS ORDERED: Acetaminophen 325 MG Tab PO PRN (16:04)
[2019-09-03] MEDS ORDERED: Albuterol/Ipratropium 3.0-0.5 MG/3 ML Neb Soln NEB SCH ×2 (20:00→23:00)
[2019-09-03] MEDS ORDERED: LORazepam 2 MG/ML SDV IVPUSH ONE (21:43)
[2019-09-03] MEDS ORDERED: LORazepam 2 MG/ML SDV ONE (21:46)
[2019-09-03] MEDS ORDERED: methylPREDNISolone Sodium Succinate 125 MG/2 ML SDV IVPUSH ONE (22:08)
[2019-09-03] MEDS ORDERED: methylPREDNISolone Sodium Succinate 125 MG/2 ML SDV ONE (22:20)
[2019-09-03 23:02] LABS: O2 DELIVERY DEVICE NASAL CANNULA
[2019-09-03 23:03] LABS: BASE EXCESS ARTERIAL 0 mmol/L (-2-3); BICARBONATE,ARTERIAL 23.7 mmol/L (22-26); O2 FLOW RATE 4 L/min; O2 SATURATION ARTERIAL 93 % (95-98); PCO2 ARTERIAL 33 mmHG (35-45); PO2 ARTERIAL 62 mmHG (80-105)
--- NOTE | 2019-09-03 23:53 | PCM.SN ---
- Free Text/Narrative Note: Call received from nursing that patient was having increased shortness of breath , poor air exchange, tripod and pursed lip breathing. Had to increase her oxygen to 4 liters via nasal cannula. Patient had just switched to DuoNebs q4h from q2h and was just 30 minutes over the 2 hour joselito. Orders given to give a DuoNeb now, solumedrol 80 mg IV x 1, lorazepam 0.25 mg IV x 1, and obtain ABGs. Nurse noted an episode of patient's pulse drop into the 60s and then a few seconds later go back up to the 110s. Provider at bedside at 2300. Diminished air flow throughout lung arm[place], no wheezing or crackles. Tachypneic, pursed lip breathing, tripod position, intercostal retractions. HR tachycardic, regular. Trace edema to BLE. Patient reports she feels a little better. ABGs similar to previous noting a respiratory alkalosis. pH 7.46, pCO2 33, pO2 62, HCO3 23.7. Placed on telemetry. D-dimer 169. BNP 165. Patient placed on simple face mask at 4 liters, however did not like this so is back on nasal cannula. Wells' Score for PE 1.5 indicating low risk. Consulted with [facility], hospitalist, Dr. Allen d/t minimal to no improvement in patient condition. He recommended giving IV antibiotics, solumedrol 60 mg IV q6h, albuterol neb q2h and/or transferring. Will trial these recommendations and also provide lorazepam 0.5 mg IV x 1 to see if this improves patient status. If no improvement or worsening of breathing, patient will be transferred to [facility]. Total time at bedside 2 hours.
[2019-09-04] MEDS ORDERED: LORazepam 2 MG/ML SDV IVPUSH ONE (00:34)
[2019-09-04] MEDS ORDERED: Albuterol/Ipratropium 3.0-0.5 MG/3 ML Neb Soln NEB SCH (01:00)
[2019-09-04] MEDS: Azithromycin 500 MG in Sodium Chloride 0.9% 250 ML IV SCH (01:25)
[2019-09-04] MEDS: Albuterol/Ipratropium 3.0-0.5 MG/3 ML Neb Soln NEB SCH ×6 (02:06→23:27)
[2019-09-04] MEDS: Albuterol 0.083% 2.5 MG/3 ML Neb Soln NEB PRN ×4 (03:55→20:03)
[2019-09-04] MEDS: methylPREDNISolone Sodium Succinate 125 MG/2 ML SDV IVPUSH SCH ×4 (04:16→23:33)
[2019-09-04] MEDS ORDERED: Albuterol 0.083% 2.5 MG/3 ML Neb Soln NEB ONE (07:55)
[2019-09-04] MEDS: Aspirin 81 MG Tab.EC PO SCH (08:40)
[2019-09-04] MEDS: Hydrochlorothiazide 25 MG Tab PO SCH (08:40)
[2019-09-04] MEDS: Potassium Chloride 10 MEQ Tab.ER PO SCH (08:40)
[2019-09-04] MEDS: Cholecalciferol (Vitamin D3) 25 MCG Tab PO SCH (08:40)
[2019-09-04] MEDS ORDERED: Losartan 25 MG Tab PO SCH (09:00)
[2019-09-04] MEDS: Fenofibrate 160 MG Tab PO SCH ×2 (09:04→09:53)
[2019-09-04] MEDS ORDERED: Losartan 25 MG Tab PO ONE (09:40)
--- NOTE | 2019-09-04 09:47 | PCM.PN ---
- General Info Date of Service: 09/04/19 - Patient Data Vitals - Most Recent: Last Vital Signs Temp 97.2 F 09/04/19 06:16 Pulse 126 H 09/04/19 08:00 Resp 24 H 09/04/19 06:16 BP 148/91 H 09/04/19 08:39 Pulse Ox 91 L 09/04/19 08:00 Weight - Most Recent: 156 lb I&O - Last 24 Hours: Intake & Output 09/03/19 09/04/19 09/04/19 22:59 06:59 14:59 Intake Total 1355 Output Total 1600 Balance -245 Lab Results Last 24 Hours: Laboratory Results - last 24 hr 09/03/19 09/03/19 09/03/19 Range/Units 08:45 08:45 10:35 WBC 9.69 (5.00-10.00) 10^3/uL RBC 4.51 (3.80-5.50) 10^6/uL Hgb 13.2 (12.0-16.0) g/dL Hct 39.8 (37.0-47.0) % MCV 88.2 (82.0-92.0) fL MCH 29.3 (27.0-31.0) pg MCHC 33.2 (32.0-36.0) g/dL RDW 13.0 (11.5-14.5) % Plt Count 406 H (150-400) 10^3/uL MPV 9.0 (7.4-10.4) fL Immature Gran % (Auto) 0.2 (0.0-5.0) % Neut % (Auto) 74.6 H (50.0-70.0) % Lymph % (Auto) 15.2 L (20.0-40.0) % Cross % (Auto) 9.0 H (2.0-8.0) % Eos % (Auto) 0.1 L (1.0-3.0) % Baso % (Auto) 0.9 (0.0-1.0) % Immature Gran # (Auto) 0.02 (0.00-0.50) 10^3/uL Neut # (Auto) 7.23 H (2.50-7.00) 10^3/uL Lymph # (Auto) 1.47 (1.00-4.00) 10^3/uL Cross # (Auto) 0.87 H (0.10-0.80) 10^3/uL Eos # (Auto) 0.01 L (0.10-0.30) 10^3/uL Baso # (Auto) 0.09 (0.00-0.10) 10^3/uL D-Dimer, Quantitative (<400) ng/mL ABG pH 7.40 (7.35-7.45) ABG pCO2 36 (35-45) mmHG ABG pO2 63 L (80-105) mmHG ABG HCO3 22.7 (22-26) mmol/L ABG Total CO2 24 (23-27) mmol/L ABG O2 Saturation 92 L (95-98) % ABG Base Excess -2 (-2-3) mmol/L O2 Delivery Device Nasal cannula Oxygen Flow Rate 3 L/min Sodium 137 (136-145) mmol/L Potassium 3.2 L (3.3-5.3) mmol/L Chloride 98 (98-115) mmol/L Carbon Dioxide 25.4 (21.0-32.0) mmol/L Anion Gap 16.8 H (5-15) mmol/L BUN 17 (6-25) mg/dL Creatinine 0.52 (0.51-1.17) mg/dL Est Cr Clr Drug Dosing 88.00 mL/min Estimated GFR (MDRD) > 60 mL/min Glucose 128 H (75 - 99) mg/dL Calcium 9.3 (8.7-10.3) mg/dL Total Bilirubin 0.3 (0.2-1.0) mg/dL AST 20 (15-37) U/L ALT 21 (12-78) U/L Alkaline Phosphatase 46 (46-116) IU/L B-Natriuretic Peptide (0-100) pg/mL Total Protein 7.7 (6.4-8.2) g/dL Albumin 3.64 (3.00-4.80) g/dL 09/03/19 09/03/19 09/03/19 Range/Units 22:55 23:25 23:25 WBC (5.00-10.00) 10^3/uL RBC (3.80-5.50) 10^6/uL Hgb (12.0-16.0) g/dL Hct (37.0-47.0) % MCV (82.0-92.0) fL MCH (27.0-31.0) pg MCHC (32.0-36.0) g/dL RDW (11.5-14.5) % Plt Count (150-400) 10^3/uL MPV (7.4-10.4) fL Immature Gran % (Auto) (0.0-5.0) % Neut % (Auto) (50.0-70.0) % Lymph % (Auto) (20.0-40.0) % Cross % (Auto) (2.0-8.0) % Eos % (Auto) (1.0-3.0) % Baso % (Auto) (0.0-1.0) % Immature Gran # (Auto) (0.00-0.50) 10^3/uL Neut # (Auto) (2.50-7.00) 10^3/uL Lymph # (Auto) (1.00-4.00) 10^3/uL Cross # (Auto) (0.10-0.80) 10^3/uL Eos # (Auto) (0.10-0.30) 10^3/uL Baso # (Auto) (0.00-0.10) 10^3/uL D-Dimer, Quantitative 169 (<400) ng/mL ABG pH 7.46 H (7.35-7.45) ABG pCO2 33 L (35-45) mmHG ABG pO2 62 L (80-105) mmHG ABG HCO3 23.7 (22-26) mmol/L ABG Total CO2 25 (23-27) mmol/L ABG O2 Saturation 93 L (95-98) % ABG Base Excess 0 (-2-3) mmol/L O2 Delivery Device Nasal cannula Oxygen Flow Rate 4 L/min Sodium (136-145) mmol/L Potassium (3.3-5.3) mmol/L Chloride (98-115) mmol/L Carbon Dioxide (21.0-32.0) mmol/L Anion Gap (5-15) mmol/L BUN (6-25) mg/dL Creatinine (0.51-1.17) mg/dL Est Cr Clr Drug Dosing mL/min Estimated GFR (MDRD) mL/min Glucose (75 - 99) mg/dL Calcium (8.7-10.3) mg/dL Total Bilirubin (0.2-1.0) mg/dL AST (15-37) U/L ALT (12-78) U/L Alkaline Phosphatase (46-116) IU/L B-Natriuretic Peptide 165 H (0-100) pg/mL Total Protein (6.4-8.2) g/dL Albumin (3.00-4.80) g/dL [place] Results Last 24 Hours: Microbiology 09/03/19 08:35 Influenza Type A Antigen Screen - Final Nasopharyngeal Swab NEGATIVE INFLUENZA A VIRUS AG REFERENCE RANGE: NEGATIVE Influenza Type B Antigen Screen - Final NEGATIVE INFLUENZA B VIRUS AG REFERENCE RANGE: NEGATIVE Med Orders - Current: Current Medications Acetaminophen (Tylenol) 650 mg PO Q6H PRN PRN Reason: Pain Last Admin: 09/03/19 16:32 Dose: 650 mg Albuterol (Proventil Neb Soln) 2.5 mg NEB Q2H PRN PRN Reason: Shortness of Breath Last Admin: 09/04/19 03:55 Dose: 2.5 mg Albuterol/Ipratropium (Duoneb 3.0-0.5 Mg/3 Ml) 3 ml NEB Q4HRRT [facility] Last Admin: 09/04/19 06:02 Dose: 3 ml Aspirin (Halfprin) 81 mg PO DAILY [facility] Last Admin: 09/04/19 08:40 Dose: 81 mg Cholecalciferol (Vitamin D3) 25 mcg PO DAILY [facility] Last Admin: 09/04/19 08:40 Dose: 25 mcg Colestipol HCl (Colestipol Hcl) 1 gm PO DAILY [facility] Last Admin: 09/04/19 09:04 Dose: Not Given Fenofibrate (Fenofibrate) 160 mg PO DAILY [facility] Last Admin: 09/04/19 09:04 Dose: Not Given Hydrochlorothiazide (Hydrochlorothiazide) 25 mg PO DAILY [facility] Last Admin: 09/04/19 08:40 Dose: 25 mg Sodium Chloride (Normal Saline) 100 mls @ 50 mls/hr IV ASDIRECTED [facility] Last Admin: 09/03/19 11:44 Dose: 50 mls/hr Azithromycin 500 mg/ Sodium (Chloride) 250 mls @ 250 mls/hr IV Q24H [facility] Last Admin: 09/04/19 01:25 Dose: 250 mls/hr Losartan Potassium (Cozaar) 25 mg PO DAILY [facility] Last Admin: 09/04/19 08:39 Dose: 25 mg Methylprednisolone Sodium Succinate (Solu-Medrol) 60 mg IVPUSH Q6H [facility] Last Admin: 09/04/19 04:16 Dose: 60 mg Potassium Chloride (Klor-Con 10) 10 meq PO DAILY [facility] Last Admin: 09/04/19 08:40 Dose: 10 meq Sodium Chloride (Saline Flush) 10 ml FLUSH Q8HR PRN PRN Reason: keep vein open Last Admin: 09/03/19 09:21 Dose: 10 ml Discontinued Medications Albuterol (Proventil Neb Soln) 7.5 mg NEB ONETIME ONE Stop: 09/04/19 07:56 Last Admin: 09/04/19 08:17 Dose: 7.5 mg Albuterol/Ipratropium (Duoneb 3.0-0.5 Mg/3 Ml) 3 ml NEB NOW STA Stop: 09/03/19 11:16 Last Admin: 09/03/19 11:38 Dose: 3 ml Albuterol/Ipratropium (Duoneb 3.0-0.5 Mg/3 Ml) 3 ml NEB ONETIME ONE Stop: 09/03/19 11:36 Last Admin: 09/03/19 11:40 Dose: 3 ml Albuterol/Ipratropium (Duoneb 3.0-0.5 Mg/3 Ml) 3 ml NEB ONETIME ONE Stop: 09/03/19 11:56 Last Admin: 09/03/19 11:57 Dose: 3 ml Albuterol/Ipratropium (Duoneb 3.0-0.5 Mg/3 Ml) 3 ml NEB Q2H DI[facility] Stop: 09/03/19 20:00 Last Admin: 09/03/19 19:17 Dose: 3 ml Albuterol/Ipratropium (Duoneb 3.0-0.5 Mg/3 Ml) 3 ml NEB Q4HRRT DIANE Albuterol/Ipratropium (Duoneb 3.0-0.5 Mg/3 Ml) 3 ml NEB Q4HRRT DIANE Albuterol/Ipratropium (Duoneb 3.0-0.5 Mg/3 Ml) 3 ml NEB ONETIME ONE Stop: 09/03/19 21:44 Last Admin: 09/03/19 21:47 Dose: 3 ml Albuterol/Ipratropium (Duoneb 3.0-0.5 Mg/3 Ml) 3 ml NEB Q4HRRT DIANE Albuterol/Ipratropium (Duoneb 3.0-0.5 Mg/3 Ml) 3 ml NEB Q2H DI[facility] Last Admin: 09/03/19 23:56 Dose: 3 ml Dexamethasone (Dexamethasone) 8 mg IVPUSH ONETIME ONE Stop: 09/03/19 09:18 Last Admin: 09/03/19 09:23 Dose: 8 mg Sodium Chloride (Normal Saline) 1,000 mls @ 999 mls/hr IV .BOLUS ONE Stop: 09/03/19 10:17 Last Admin: 09/03/19 09:24 Dose: 999 mls/hr Magnesium Sulfate 2 gm/ Premix 50 mls @ 150 mls/hr IV ONETIME ONE Stop: 09/03/19 11:38 Last Admin: 09/03/19 11:38 Dose: 150 mls/hr Lorazepam (Ativan) 0.25 mg IVPUSH ONETIME ONE Stop: 09/03/19 21:44 Last Admin: 09/03/19 21:53 Dose: 0.25 mg Lorazepam (Ativan) Confirm Administered Dose 2 mg .ROUTE .STK-MED ONE Stop: 09/03/19 21:47 Last Admin: 09/03/19 22:12 Dose: Not Given Lorazepam (Ativan) 0.5 mg IVPUSH ONETIME ONE Stop: 09/04/19 00:35 Last Admin: 09/04/19 00:56 Dose: 0.5 mg Methylprednisolone Sodium Succinate (Solu-Medrol) 80 mg IVPUSH ONETIME ONE Stop: 09/03/19 22:09 Last Admin: 09/03/19 22:10 Dose: 80 mg Methylprednisolone Sodium Succinate (Solu-Medrol) Confirm Administered Dose 125 mg .ROUTE .STK-MED ONE Stop: 09/03/19 22:21 Last Admin: 09/03/19 22:46 Dose: Not Given Sepsis Event Note - Evaluation Sepsis Screening Result: No Definite Risk - Focused Exam Vital Signs: Vital Signs Temp Pulse Resp BP BP BP Pulse Ox 09/04/19 08:39 148/91 H 09/04/19 08:00 126 H 09/04/19 06:16 97.2 F 106 H 24 H 140/82 88 L 09/04/19 06:02 126 H 09/04/19 06:00 09/04/19 04:11 60 09/04/19 03:00 96.6 F 111 H 36 H 145/86 H 89 L 09/04/19 00:15 108 H 09/03/19 23:50 98.5 F 102 H 30 H 152/93 H 93 L 09/03/19 22:53 110 H 09/03/19 21:50 98.7 F 110 H 36 H 146/87 H 91 L 09/03/19 21:40 32 H 88 L Pulse Ox 09/04/19 08:39 09/04/19 08:00 91 L 09/04/19 06:16 09/04/19 06:02 88 L 09/04/19 06:00 88 L 09/04/19 04:11 90 L 09/04/19 03:00 09/04/19 00:15 93 L 09/03/19 23:50 09/03/19 22:53 88 L 09/03/19 21:50 09/03/19 21:40 Date Exam was Performed: 09/04/19 Time Exam was Performed: 09:21 - Problem List Review Problem List Initiated/Reviewed/Updated: Yes - My Orders Last 24 Hours: My Active Orders 09/03/19 11:24 RT Aerosol Therapy [RC] ASDIRECTED 09/03/19 11:30 Sodium Chloride 0.9% [Normal Saline] 100 ml IV ASDIRECTED 09/03/19 16:04 Acetaminophen [Tylenol] 650 mg PO Q6H PRN 09/03/19 Dinner Regular Diet [DIET] 09/04/19 07:34 Oxygen Therapy [RC] ASDIRECTED 09/04/19 08:24 ABG [BLOOD GAS ARTERIAL] [BG] Routine 09/04/19 09:00 Aspirin [Halfprin] 81 mg PO DAILY Cholecalciferol (Vitamin D3) [Vitamin D3] 25 mcg PO DAILY Colestipol [Colestipol HCl] 1 gm PO DAILY Fenofibrate 160 mg PO DAILY Losartan [Cozaar] 25 mg PO DAILY Potassium Chloride [Klor-Con 10] 10 meq PO DAILY hydroCHLOROthiazide 25 mg PO DAILY - Plan Plan:: History of present illness Ayaka is a 74-year-old female who was admitted through the ED due to significant shortness of breath. Patient had presented to the ED on August 31 with similar symptoms and was treated with duo nebulizers and she improved in which she was sent home to self-care however she stated that her symptoms persisted despite using her albuterol "multiple times" she does have asthma and takes short acting MIC/LAMA the form of duo nebs 4 times a day. Appears she is not on asthma control medication. At one point she was on home oxygen however she sent it back. She gets ill fall/wintertime with similar symptoms. No PFTs on file however does have current asthma control test. Does not do home PFTs. Remote smoker as a young child likely 1 to 2 years max ED evaluation Hypoxic POX 86% Tachycardia/Tachypneic ABG, pH 7.4, CO2 36, PO2 63, HCO3 23 Update, Nurses notified me this morning just before arriving of patient with increased shortness of breath. Oncall provider last night was present with patient with ongoing shortness of breath, duo nebs, glucocorticoid therapy, prophylactic IV antibiotics along with lorazepam and repeat ABG with low transfer threshold if no improvement per Valeria coppola, Dr. Allen. Placed on telemetry. D- dimer 169. BNP 165. ABG not much change from yesterday however PO2 62. Gave orders for albuterol only nebulizers every 20 minutes x 3. More comfortable, sitting on side of bed and eating breakfast. Slightly tachycardic however does have some wheezing which is an improvement from diminished airflow a few minutes prior to arrival. appear some anxious baseline likely is exacerbating. Peak flows unreliable as witness poor technique multiple times Primary hospital problems --Asthma with acute exacerbation, albuterol nebs q 20min x 3, glucocorticoid therapy, prophylactic IV antibiotics, lorazepam, telemetry. ABG not much change from yesterday however PO2 62. --Hypokalemia, increase her K+ supplementation --Hypertension, not optimal, increase ARB --anxiety, exacerbating, low dose ativan, pH 7.46 GI stress prophylaxis, p.o. PPI DVT prophylaxis, ROSALIA gormans Disposition, Patient does appear to be improving however we will monitor her carefully today if she starts to clinically deteriorate we will repeat ABG and low transfer threshold. Appears anxiety big component, low-dose Ativan
[2019-09-04] MEDS: Omeprazole 20 MG Cap.CR PO SCH (10:16)
[2019-09-04] MEDS: LORazepam 2 MG/ML SDV IVPUSH PRN ×3 (11:21→23:52)
[2019-09-04] MEDS: guaiFENesin/Dextromethorphan 100-10 MG/5 ML Soln 5 ML Cup PO PRN ×3 (12:33→23:48)
[2019-09-04] MEDS: Oseltamivir 75 MG Cap PO SCH (16:35)
[2019-09-04] MEDS: Sodium Chloride 0.9% 10 ML Syringe FLUSH PRN (23:57)
[2019-09-05] MEDS: Azithromycin 500 MG in Sodium Chloride 0.9% 250 ML IV SCH ×2 (00:13→22:17)
[2019-09-05] MEDS: Sodium Chloride 0.9% 100 ML IV SCH (00:25)
[2019-09-05] MEDS: Albuterol 0.083% 2.5 MG/3 ML Neb Soln NEB PRN ×4 (03:01→20:10)
[2019-09-05] MEDS: guaiFENesin/Dextromethorphan 100-10 MG/5 ML Soln 5 ML Cup PO PRN ×3 (03:16→18:17)
[2019-09-05] MEDS: methylPREDNISolone Sodium Succinate 125 MG/2 ML SDV IVPUSH SCH ×2 (05:17→10:34)
[2019-09-05] MEDS: Sodium Chloride 0.9% 10 ML Syringe FLUSH PRN ×2 (05:19→22:17)
[2019-09-05] MEDS: Albuterol/Ipratropium 3.0-0.5 MG/3 ML Neb Soln NEB SCH ×4 (05:44→22:57)
[2019-09-05] MEDS: LORazepam 2 MG/ML SDV IVPUSH PRN (06:01)
[2019-09-05] MEDS: Omeprazole 20 MG Cap.CR PO SCH (06:32)
[2019-09-05 07:55] LABS: ANION GAP 13.3 mmol/L (5-15); CHLORIDE,CL 100 mmol/L (98-115); SODIUM,NA 139 mmol/L (136-145)
[2019-09-05] MEDS: Hydrochlorothiazide 25 MG Tab PO SCH (08:44)
[2019-09-05] MEDS: Aspirin 81 MG Tab.EC PO SCH (08:44)
[2019-09-05] MEDS: Cholecalciferol (Vitamin D3) 25 MCG Tab PO SCH (08:45)
[2019-09-05] MEDS: Losartan 25 MG Tab PO SCH (08:45)
[2019-09-05] MEDS: Oseltamivir 75 MG Cap PO SCH (08:45)
[2019-09-05] MEDS: Potassium Chloride 10 MEQ Tab.ER PO SCH (08:45)
[2019-09-05] MEDS: Fenofibrate 160 MG Tab PO SCH (08:45)
--- NOTE | 2019-09-05 10:21 | PCM.PN ---
- General Info Date of Service: 09/05/19 Functional Status: Reports: Pain Controlled, Tolerating Diet, Urinating. Denies : Ambulating - Review of Systems General: Denies: Fever, Weakness, Fatigue, Malaise HEENT: Denies: Glasses, Headaches, Post Nasal Drip, Sinus Congestion, Sore Throat, Rhinitis, Visual Changes Pulmonary: Reports: Sputum (mild scant sputum) Cardiovascular: Reports: Dyspnea on Exertion. Denies: Chest Pain, Palpitations Gastrointestinal: Reports: No Symptoms Genitourinary: Reports: No Symptoms Musculoskeletal: Reports: No Symptoms Skin: Reports: Dryness Neurological: Denies: Confusion Psychiatric: Reports: Anxiety. Denies: Confusion, Cravings - Patient Data Vitals - Most Recent: Last Vital Signs Temp 96.6 F 09/05/19 06:00 Pulse 100 09/05/19 06:00 Resp 20 09/05/19 06:00 BP 147/79 H 09/05/19 08:45 Pulse Ox 94 L 09/05/19 06:00 Weight - Most Recent: 156 lb I&O - Last 24 Hours: Intake & Output 09/04/19 09/05/19 09/05/19 22:59 06:59 14:59 Intake Total 935 535 Output Total 300 400 Balance 635 135 Lab Results Last 24 Hours: Laboratory Results - last 24 hr 09/05/19 Range/Units 07:26 Sodium 139 (136-145) mmol/L Potassium 3.9 (3.3-5.3) mmol/L Chloride 100 (98-115) mmol/L Carbon Dioxide 29.6 (21.0-32.0) mmol/L Anion Gap 13.3 (5-15) mmol/L BUN 21 (6-25) mg/dL Creatinine 0.48 L (0.51-1.17) mg/dL Est Cr Clr Drug Dosing 95.33 mL/min Estimated GFR (MDRD) > 60 mL/min Glucose 156 H (75 - 99) mg/dL Calcium 9.1 (8.7-10.3) mg/dL Med Orders - Current: Current Medications Acetaminophen (Tylenol) 650 mg PO Q6H PRN PRN Reason: Pain Last Admin: 09/03/19 16:32 Dose: 650 mg Albuterol (Proventil Neb Soln) 2.5 mg NEB Q2H PRN PRN Reason: Shortness of Breath Last Admin: 09/05/19 08:38 Dose: 2.5 mg Albuterol/Ipratropium (Duoneb 3.0-0.5 Mg/3 Ml) 3 ml NEB Q6HRRT [facility] Last Admin: 09/05/19 05:44 Dose: 3 ml Aspirin (Halfprin) 81 mg PO DAILY [facility] Last Admin: 09/05/19 08:44 Dose: 81 mg Cholecalciferol (Vitamin D3) 25 mcg PO DAILY [facility] Last Admin: 09/05/19 08:45 Dose: 25 mcg Colestipol HCl (Colestipol Hcl) 1 gm PO DAILY [facility] Last Admin: 09/05/19 08:45 Dose: 1 gm Fenofibrate (Fenofibrate) 160 mg PO DAILY [facility] Last Admin: 09/05/19 08:45 Dose: 160 mg Guaifenesin/Phenylephrine HCl (Robitussin Dm) 10 ml PO Q4H PRN PRN Reason: Cough Last Admin: 09/05/19 03:16 Dose: 10 ml Hydrochlorothiazide (Hydrochlorothiazide) 25 mg PO DAILY [facility] Last Admin: 09/05/19 08:44 Dose: 25 mg Sodium Chloride (Normal Saline) 100 mls @ 50 mls/hr IV ASDIRECTED [facility] Last Admin: 09/05/19 00:25 Dose: 50 mls/hr Azithromycin 500 mg/ Sodium (Chloride) 250 mls @ 250 mls/hr IV Q24H [facility] Last Admin: 09/05/19 00:13 Dose: 250 mls/hr Lorazepam (Ativan) 0.25 mg IVPUSH Q4H PRN PRN Reason: Anxiety Last Admin: 09/05/19 06:01 Dose: 0.25 mg Losartan Potassium (Cozaar) 50 mg PO DAILY [facility] Last Admin: 09/05/19 08:45 Dose: 50 mg Methylprednisolone Sodium Succinate (Solu-Medrol) 60 mg IVPUSH Q6H [facility] Last Admin: 09/05/19 05:17 Dose: 60 mg Omeprazole (Omeprazole) 20 mg PO ACBREAKFAST [facility] Last Admin: 09/05/19 06:32 Dose: 20 mg Oseltamivir Phosphate (Tamiflu) 75 mg PO DAILY [facility] Stop: 09/14/19 15:01 Last Admin: 09/05/19 08:45 Dose: 75 mg Potassium Chloride (Klor-Con 10) 10 meq PO DAILY [facility] Last Admin: 09/05/19 08:45 Dose: 10 meq Sodium Chloride (Saline Flush) 10 ml FLUSH Q8HR PRN PRN Reason: keep vein open Last Admin: 09/05/19 05:19 Dose: 10 ml Discontinued Medications Albuterol (Proventil Neb Soln) 7.5 mg NEB ONETIME ONE Stop: 09/04/19 07:56 Last Admin: 09/04/19 08:17 Dose: 7.5 mg Albuterol/Ipratropium (Duoneb 3.0-0.5 Mg/3 Ml) 3 ml NEB NOW STA Stop: 09/03/19 11:16 Last Admin: 09/03/19 11:38 Dose: 3 ml Albuterol/Ipratropium (Duoneb 3.0-0.5 Mg/3 Ml) 3 ml NEB ONETIME ONE Stop: 09/03/19 11:36 Last Admin: 09/03/19 11:40 Dose: 3 ml Albuterol/Ipratropium (Duoneb 3.0-0.5 Mg/3 Ml) 3 ml NEB ONETIME ONE Stop: 09/03/19 11:56 Last Admin: 09/03/19 11:57 Dose: 3 ml Albuterol/Ipratropium (Duoneb 3.0-0.5 Mg/3 Ml) 3 ml NEB Q2H [facility] Stop: 09/03/19 20:00 Last Admin: 09/03/19 19:17 Dose: 3 ml Albuterol/Ipratropium (Duoneb 3.0-0.5 Mg/3 Ml) 3 ml NEB Q4HRRT DIANE Albuterol/Ipratropium (Duoneb 3.0-0.5 Mg/3 Ml) 3 ml NEB Q4HRRT DIANE Albuterol/Ipratropium (Duoneb 3.0-0.5 Mg/3 Ml) 3 ml NEB ONETIME ONE Stop: 09/03/19 21:44 Last Admin: 09/03/19 21:47 Dose: 3 ml Albuterol/Ipratropium (Duoneb 3.0-0.5 Mg/3 Ml) 3 ml NEB Q4HRRT DIANE Albuterol/Ipratropium (Duoneb 3.0-0.5 Mg/3 Ml) 3 ml NEB Q2H [facility] Last Admin: 09/03/19 23:56 Dose: 3 ml Albuterol/Ipratropium (Duoneb 3.0-0.5 Mg/3 Ml) 3 ml NEB Q4HRRT [facility] Last Admin: 09/04/19 11:04 Dose: Not Given Dexamethasone (Dexamethasone) 8 mg IVPUSH ONETIME ONE Stop: 09/03/19 09:18 Last Admin: 09/03/19 09:23 Dose: 8 mg Sodium Chloride (Normal Saline) 1,000 mls @ 999 mls/hr IV .BOLUS ONE Stop: 09/03/19 10:17 Last Admin: 09/03/19 09:24 Dose: 999 mls/hr Magnesium Sulfate 2 gm/ Premix 50 mls @ 150 mls/hr IV ONETIME ONE Stop: 09/03/19 11:38 Last Admin: 09/03/19 11:38 Dose: 150 mls/hr Lorazepam (Ativan) 0.25 mg IVPUSH ONETIME ONE Stop: 09/03/19 21:44 Last Admin: 09/03/19 21:53 Dose: 0.25 mg Lorazepam (Ativan) Confirm Administered Dose 2 mg .ROUTE .STK-MED ONE Stop: 09/03/19 21:47 Last Admin: 09/03/19 22:12 Dose: Not Given Lorazepam (Ativan) 0.5 mg IVPUSH ONETIME ONE Stop: 09/04/19 00:35 Last Admin: 09/04/19 00:56 Dose: 0.5 mg Losartan Potassium (Cozaar) 25 mg PO DAILY [facility] Last Admin: 09/04/19 08:39 Dose: 25 mg Losartan Potassium (Cozaar) 25 mg PO ONETIME ONE Stop: 09/04/19 09:41 Last Admin: 09/04/19 10:00 Dose: 25 mg Methylprednisolone Sodium Succinate (Solu-Medrol) 80 mg IVPUSH ONETIME ONE Stop: 09/03/19 22:09 Last Admin: 09/03/19 22:10 Dose: 80 mg Methylprednisolone Sodium Succinate (Solu-Medrol) Confirm Administered Dose 125 mg .ROUTE .STK-MED ONE Stop: 09/03/19 22:21 Last Admin: 09/03/19 22:46 Dose: Not Given - Exam Quality Assessment: Supplemental Oxygen, DVT Prophylaxis General: Alert, Oriented, Cooperative, Mild Distress Neck: No JVD Lungs: Decreased Breath Sounds, Wheezing. No: Normal Respiratory Effort Cardiovascular: Tachycardia GI/Abdominal Exam: Soft (Female) Exam: Deferred Back Exam: No: CVA Tenderness (L), CVA Tenderness (R) Extremities: No: Pedal Edema Peripheral Pulses: 0: Femoral (L), 2+: Radial (L) Skin: Dry Psy/Mental Status: Alert, Normal Affect, Anxious (mild anxiety but improved. ) Sepsis Event Note - Evaluation Sepsis Screening Result: No Definite Risk - Focused Exam Vital Signs: Vital Signs Temp Pulse Resp BP BP Pulse Ox Pulse Ox 09/05/19 08:45 147/79 H 09/05/19 06:00 96.6 F 100 20 145/86 H 94 L 09/05/19 05:47 96 94 L 09/05/19 03:00 97.9 F 102 H 22 H 152/86 H 93 L 09/04/19 23:30 92 L 09/04/19 23:00 97.1 F 110 H 22 H 152/86 H 92 L Date Exam was Performed: 09/05/19 Time Exam was Performed: 10:01 - Problem List Review Problem List Initiated/Reviewed/Updated: Yes - My Orders Last 24 Hours: My Active Orders 09/04/19 09:45 Antiembolic Devices [RC] 0900,2100 CADEN Hose [Antiembolic Hose] [OM.PC] Routine 09/04/19 11:00 Albuterol/Ipratropium [DuoNeb 3.0-0.5 MG/3 ML] 3 ml NEB Q6HRRT 09/04/19 11:02 LORazepam [Ativan] 0.25 mg IVPUSH Q4H PRN 09/04/19 12:05 Dextromethorphan/guaiFENesin [Robitussin DM] 10 ml PO Q4H PRN 09/04/19 15:00 Oseltamivir [Tamiflu] 75 mg PO DAILY 09/05/19 06:10 RESPIRATORY CULT [MREF] Routine 09/05/19 09:00 Losartan [Cozaar] 50 mg PO DAILY - Plan Plan:: History of present illness Ayaka is a 74-year-old female who was admitted through the ED due to significant shortness of breath. Patient had presented to the ED on August 31 with similar symptoms and was treated with duo nebulizers and she improved in which she was sent home to self-care however she stated that her symptoms persisted despite using her albuterol "multiple times" she does have asthma and takes short acting MIC/LAMA the form of duo nebs 4 times a day. Appears she is not on asthma control medication. At one point she was on home oxygen however she sent it back. She gets ill fall/wintertime with similar symptoms. No PFTs on file however does have current asthma control test. Does not do home PFTs. Remote smoker as a young child likely 1 to 2 years max ED evaluation Hypoxic POX 86% Tachycardia/Tachypneic ABG, pH 7.4, CO2 36, PO2 63, HCO3 23 Update, No overnight concerns; patient seems to Be improving in her respiratory status and her anxiety state. although remains SOB she is much improved since initial admission, duo nebs, glucocorticoid therapy, prophylactic IV antibiotics along with lorazepam ongoing. still remained slightly tachycardic. Peak flows unreliable as witness poor technique multiple times. yesterday staff development nurse at [facility] tested positiv for influenza B, orders given for patient to receive prophylactic treatment Primary hospital problems --Asthma with acute exacerbation, she seems to be clinically improving, feels better. POX 94% on 3-4 liters, glucocorticoid therapy will be change to by mouth and reduce dose today. prophylactic IV antibiotics, lorazepam, remove telemetry. HUE/LAMA q 6h DIANE with mono-therpay HUE (albuterol) q2h PRN --Hypokalemia, resolved --Hypertension, improved since increasing her home ARB --anxiety, exacerbating her condition, low dose ativan, pH 7.46 --influenza B exposure, staff development nurse positive for influenza B, started on prophylactic Tamiflu treatment GI stress prophylaxis, p.o. PPI DVT prophylaxis, hose, SCDs Disposition, --Patient does appear to be improving however we will monitor her carefully today if she starts to clinically deteriorate we will repeat ABG. --low-dose Ativan --Change prednisone to PO and reduced dose --remove Tele status on discharge --Consider Singular --ARB was increased this admission
[2019-09-05] MEDS: predniSONE 20 MG Tab PO SCH (20:05)
[2019-09-06] MEDS: Albuterol 0.083% 2.5 MG/3 ML Neb Soln NEB PRN ×2 (01:47→13:31)
[2019-09-06] MEDS: guaiFENesin/Dextromethorphan 100-10 MG/5 ML Soln 5 ML Cup PO PRN ×2 (04:39→09:11)
[2019-09-06] MEDS: Albuterol/Ipratropium 3.0-0.5 MG/3 ML Neb Soln NEB SCH ×4 (04:41→22:11)
[2019-09-06] MEDS: Omeprazole 20 MG Cap.CR PO SCH (06:31)
[2019-09-06 07:49] LABS: CHLORIDE,CL 98 mmol/L (98-115); SODIUM,NA 137 mmol/L (136-145)
[2019-09-06] MEDS: Fenofibrate 160 MG Tab PO SCH (08:32)
[2019-09-06] MEDS: predniSONE 20 MG Tab PO SCH ×2 (08:32→20:07)
[2019-09-06] MEDS: Oseltamivir 75 MG Cap PO SCH (08:32)
[2019-09-06] MEDS: Cholecalciferol (Vitamin D3) 25 MCG Tab PO SCH (08:32)
[2019-09-06] MEDS: Hydrochlorothiazide 25 MG Tab PO SCH (08:32)
[2019-09-06] MEDS: Losartan 25 MG Tab PO SCH (08:33)
[2019-09-06] MEDS: Potassium Chloride 10 MEQ Tab.ER PO SCH (08:33)
[2019-09-06] MEDS: Aspirin 81 MG Tab.EC PO SCH (08:33)
[2019-09-06] MEDS ORDERED: LORazepam 0.5 MG Tab PO PRN (11:27)
--- NOTE | 2019-09-06 13:15 | PN ---
09/06/2019 PATIENT NAME: CLEMENTINA ESTRELLA SUBJECTIVE: This is a 74-year-old female patient with a history of asthma. She was at home having some shortness of breath. She presented to the emergency room on 08/31/2019. She was given some DuoNeb at that time in the ER, she had improved, so she went home. She was doing some nebulizer treatments at home, she did it multiple times, but she continued to be short of breath and wheezy, so she came back to the emergency room. She was found to be hypoxic with low oxygen saturation, so she was admitted at that time. LABORATORY DATA: The patient's lab work that she had today, her white count is elevated at 15.6, hemoglobin stable at 12.7, most likely that her white count is elevated due to steroid therapy. She also did have a chemistry, basic metabolic panel today which is unremarkable. OBJECTIVE: VITAL SIGNS: The patient's vital signs today, temperature is 97.9, pulse 101, blood pressure is 148/87, respiratory rate is 22, oxygen saturations are 93% on 4 L nasal cannula. GENERAL: This is an elderly white female, in no acute distress. She does have wheezing throughout lung sounds. She is alert and orientated. I had her do an incentive spirometer as in the room. She can only get to about 500. Nursing staff reports that she does get short of breath with any activity, even just getting up to the bathroom and that her oxygen saturations do drop into the 80s at that time. The patient denies any chest pain. She continues to have a cough. She says it is productive in the morning. She has been eating okay. IMPRESSION AND PLAN: 1. Exacerbation of asthma. Plan: We will continue the patient on 4 L oxygen nasal cannula and continue to monitor oxygen saturations. She has been coughing up quite a bit of phlegm, productive cough. I am going to have her take Robitussin DM scheduled every 6 hours to hopefully loosen up some of this chest congestion that she is having. We will continue with DuoNebs every 6 hours scheduled. She also does have albuterol nebulizers she gets in between the DuoNeb treatments. Continue with steroid therapy, prednisone 40 mg orally twice a day. The patient did have a sputum culture that was sent yesterday. The results are pending at this time. We do have her on azithromycin orally prophylactically at this time. We will continue with azithromycin, nebulizers, cough syrup and steroid therapy and see how she does. 2. Anxiety. The patient does get anxious at times with shortness of breath. We do have Ativan that she can have p.r.n. 3. History of hyperlipidemia. Plan: Continue with fenofibrate 160 mg daily. 4. History of hypertension. Plan: Continue with HCTZ 25 mg daily along with losartan 50 mg daily. She also does take aspirin 81 mg daily. 5. GI prophylaxis. We are going to keep her on omeprazole 20 mg daily in the morning while she is in the hospital here. 6. Influenza exposure. Plan: One of the nursing staff did have a positive swab for influenza, so the patient is currently on Tamiflu prophylactically. 7. Hypokalemia. Plan: Continue with potassium chloride 10 mEq daily. The patient's potassium level today was 4.1. 8. Deep venous thrombosis prophylaxis. Plan: Continue with sequential compression devices when she is in bed. Overall plan: Patient continues to be wheezy and drop her oxygen saturations with little activity. We will continue to monitor closely. Plan for discharge is uncertain at this time. /[id number]/MODL MTDD
[2019-09-06] MEDS: guaiFENesin/Dextromethorphan 100-10 MG/5 ML Soln 5 ML Cup PO SCH ×2 (13:32→17:58)
[2019-09-06] MEDS: Montelukast 10 MG Tab PO SCH (20:07)
[2019-09-06] MEDS: Azithromycin 500 MG in Sodium Chloride 0.9% 250 ML IV SCH (21:36)
[2019-09-06] MEDS: Sodium Chloride 0.9% 100 ML IV SCH (21:37)
[2019-09-07] MEDS: guaiFENesin/Dextromethorphan 100-10 MG/5 ML Soln 5 ML Cup PO SCH ×5 (00:27→23:25)
[2019-09-07] MEDS: Albuterol 0.083% 2.5 MG/3 ML Neb Soln NEB PRN ×2 (03:06→14:06)
[2019-09-07] MEDS: Albuterol/Ipratropium 3.0-0.5 MG/3 ML Neb Soln NEB SCH ×4 (05:25→23:25)
[2019-09-07] MEDS: Omeprazole 20 MG Cap.CR PO SCH (06:33)
[2019-09-07] MEDS: Losartan 25 MG Tab PO SCH (08:35)
[2019-09-07] MEDS: Oseltamivir 75 MG Cap PO SCH (08:35)
[2019-09-07] MEDS: Hydrochlorothiazide 25 MG Tab PO SCH (08:35)
[2019-09-07] MEDS: predniSONE 20 MG Tab PO SCH ×2 (08:36→20:10)
[2019-09-07] MEDS: Cholecalciferol (Vitamin D3) 25 MCG Tab PO SCH (08:36)
[2019-09-07] MEDS: Aspirin 81 MG Tab.EC PO SCH (08:36)
[2019-09-07] MEDS: Fenofibrate 160 MG Tab PO SCH (08:36)
[2019-09-07] MEDS: Potassium Chloride 10 MEQ Tab.ER PO SCH (08:36)
[2019-09-07] MEDS ORDERED: predniSONE 20 MG Tab PO ONE (10:44)
--- NOTE | 2019-09-07 13:38 | PN ---
09/07/2019 PATIENT NAME: CLEMENTINA ESTRELLA SUBJECTIVE: This is a 74-year-old female patient who has a history of asthma. She was at home having some shortness of breath. She went to the emergency room on 08/31. She was given some DuoNeb treatments in the emergency room. At that time, she did improve, so she was sent home. She went home and she was doing multiple nebulizers at home and she was not getting any better. She still complained of shortness of breath and wheezing and cough. She returned to the emergency room and she was found to be hypoxic with low oxygen saturations. She was admitted at that time. She was very wheezy. Today, now the patient states that she is using her incentive spirometer. She can get up to about a 1000 as a maximum. She has determined that she is going to get better. She has been in the hospital for several days now. She still requires 3-4 L nasal cannula oxygen to maintain her oxygen saturation. She still gets a little short of breath when she is up to the bathroom. She denies any chest pain. She does cough occasionally. OBJECTIVE: VITAL SIGNS: The patient's vital signs today, temperature is 97.1, pulse is 94, blood pressure is 141/77. The patient's oxygen saturations are anywhere from 92% to 96% on 4 L. Respiratory rate is 22. GENERAL: This is an elderly white female in no acute distress. LUNGS: She does have scattered wheezes throughout all of her lung armstrong. HEART: Tones are regular rate and rhythm. No murmurs identified. ABDOMEN: Soft, nontender, nondistended. Bowel sounds present x4. EXTREMITIES: No pedal edema noted. LABORATORY DATA: Lab work that was obtained yesterday showed a white count elevated at 15.6. No lab work obtained today. We will obtain a CBC and CMP tomorrow morning. IMPRESSION AND PLAN: 1. Exacerbation of asthma. Plan: We are going to continue the patient on oxygen to keep her sats greater than 90%. We are going to try to wean it down 1 L every 12 hours as tolerated at this time. She still gets really short of breath with activity. I do got her on some scheduled Robitussin DM every 6 hours because her cough has been very productive with lots of phlegm. We will continue with DuoNeb every 6 hours. She also does have the albuterol nebulizer that she can get in between her DuoNebs. We will continue with steroid therapy, 40 mg prednisone twice a day. I did give the patient additional 40 mg of prednisone today. We will need to start titrating this down as tolerated. Sputum culture was sent yesterday and is pending at this time. The patient was on Azithromycin for 5 days. I did go ahead and discontinued the azithromycin today that was for prophylaxis. I am going to start the patient on Pulmicort nebulizers twice a day also. 2. Anxiety. The patient does get anxious at times with her shortness of breath. She has some Ativan that we can use p.r.n. 3. History of hyperlipidemia. Plan: Continue with fenofibrate 160 mg daily. 4. History of hypertension. Plan: Continue with HCTZ 25 mg daily along with losartan 50 mg daily. She also does take an aspirin 81 mg daily. 5. GI prophylaxis. We are going to keep the patient on omeprazole 20 mg daily in the morning while she is in the hospital here. 6. Influenza exposure. Plan: One of the nursing staff test positive for influenza. We are going to keep the patient on Tamiflu prophylactically. 7. Hypokalemia. Plan: The patient's potassium was normal yesterday at 4.1. We will continue with potassium chloride 10 mEq daily. 8. DVT prophylaxis. Plan: Continue with SCDs while the patient is in bed. OVERALL PLAN: The patient is still really wheezy throughout lung armstrong. She gets really short of breath with activity. Physical therapy was ordered. I am going to wait for the patient's physiotherapy evaluation tomorrow to see what plan for patient. I did start her on Pulmicort nebulizers twice a day today. We are going to need to start titrating down her prednisone. Plan for her tomorrow would be swing here at the hospital. We will try to wean her oxygen down 1 L every 12 hours as tolerated. /[id number]/MODL MTDD
[2019-09-07] MEDS: Montelukast 10 MG Tab PO SCH (20:10)
[2019-09-07] MEDS: Budesonide 0.5 MG/2 ML Neb Susp NEB SCH (20:10)
[2019-09-08] MEDS: Albuterol 0.083% 2.5 MG/3 ML Neb Soln NEB PRN (03:40)
[2019-09-08] MEDS: guaiFENesin/Dextromethorphan 100-10 MG/5 ML Soln 5 ML Cup PO SCH ×2 (05:27→11:16)
[2019-09-08] MEDS: Albuterol/Ipratropium 3.0-0.5 MG/3 ML Neb Soln NEB SCH ×2 (05:27→10:10)
[2019-09-08] MEDS: Omeprazole 20 MG Cap.CR PO SCH (07:32)
[2019-09-08] MEDS: Budesonide 0.5 MG/2 ML Neb Susp NEB SCH (07:45)
[2019-09-08 08:09] LABS: ANION GAP 11.4 mmol/L (5-15); CHLORIDE,CL 97 mmol/L (98-115); SODIUM,NA 137 mmol/L (136-145)
[2019-09-08] MEDS: Hydrochlorothiazide 25 MG Tab PO SCH (08:22)
[2019-09-08] MEDS: Cholecalciferol (Vitamin D3) 25 MCG Tab PO SCH (08:22)
[2019-09-08] MEDS: predniSONE 20 MG Tab PO SCH (08:22)
[2019-09-08] MEDS: Fenofibrate 160 MG Tab PO SCH (08:22)
[2019-09-08] MEDS: Losartan 25 MG Tab PO SCH (08:23)
[2019-09-08] MEDS: Oseltamivir 75 MG Cap PO SCH (08:23)
[2019-09-08] MEDS: Aspirin 81 MG Tab.EC PO SCH (08:23)
[2019-09-08] MEDS: Potassium Chloride 10 MEQ Tab.ER PO SCH (08:23)
[2019-09-08 08:25] VITALS: BP 154/83
[2019-09-08 10:18] VITALS: PULSE 85
[2019-09-08] MEDS ORDERED: Fluticasone Propionate Nasal Spray 16 GM Bottle NASBOTH SCH (11:30)
--- NOTE | 2019-09-08 14:05 | HP ---
She is being transferred from inpatient to swing bed status. DATE OF SWING BED ADMISSION: Today, which is 09/08/2019. HISTORY OF PRESENT ILLNESS: This is a 74-year-old female patient with a long history of asthma. She was at home having shortness of breath. She came to the emergency room on 08/31/2019. She was given some DuoNeb in the ER. Her oxygen saturation improved. She felt better. She was discharged home at that time on some nebulizers. She went home and she continued to have shortness of breath. She was using her nebulizer quite frequently and still coughing and short of breath. She came back to the emergency room and she was found to have low oxygen saturations at that time, so she was admitted with exacerbation of her asthma at that time. Now today, the patient is doing much better. Her lung sounds are better. Her activities are better. She is able to go up to 1200 on her incentive spirometer. She is using less oxygen, activities increasing. She feels better today. PAST MEDICAL HISTORY: The patient does have a past medical history of asthma, anxiety, hyperlipidemia, hypertension. MEDICATIONS: She was taking at home: Hydrochlorothiazide 25 mg daily, potassium 10 mEq daily, losartan 25 mg daily, fenofibrate 16m0 mg daily, colestipol 1 g daily, vitamin D3 1000 units daily, baby aspirin 81 mg daily, DuoNeb as needed, and fish oil with omega-3 1000 mg daily. ALLERGIES: She is allergic to statins and Omnicef. SOCIAL/PERSONAL HISTORY: She is retired. She lives at home with her . Denies any alcohol or tobacco use. REVIEW OF SYSTEMS: CONSTITUTIONAL: No weight loss. No fever. No chills. No night sweats. Appetite is good. No fatigue. EYES: No recent visual changes. ENT: No sinus congestion or hoarseness. CARDIOVASCULAR: No chest pain or palpitations. RESPIRATORY: She does complain of shortness of breath with activity. No chest pain. She is still coughing, is mostly dry cough. GI: No vomiting, diarrhea or melena. : No dysuria or hematuria. MUSCULOSKELETAL: No new bone pain or joint swelling. INTEGUMENTARY: No rash or pruritus. NEUROLOGIC/PSYCHIATRIC: No recent headache or focal weakness. No depressive symptoms. ENDOCRINE: No heat or cold intolerances or polydipsia. HEMATOLOGIC/LYMPHATIC: No excessive bruising or lymph node swelling. ALLERGIC/IMMUNOLOGIC: No hives or recurrent infections. PHYSICAL EXAMINATION: GENERAL: This is an elderly white female, in no acute distress. VITAL SIGNS: Temperature is 97.9, pulse is 85, blood pressure is 154/83, respiratory rate is 22, oxygen saturations on 2 L nasal cannula is 90% to 94%. HEENT: Head is normocephalic. EOMs are intact. Pupils are equal, round, and reactive to light and accommodation. Nose is clear. No pharyngeal erythema noted. NECK: Supple. No JVD. Trachea is midline. RESPIRATORY: Lung sounds are improved from yesterday. No wheezing heard. It is diminished at bilateral bases. CARDIAC: Regular rate and rhythm. No murmurs identified. ABDOMEN: Soft, nontender, nondistended. Bowel sounds present x4. EXTREMITIES: Full range of motion. No joint effusion noted. NEUROLOGIC: Grossly intact. DIAGNOSTIC: The patient's chest x-ray showed no acute findings per Radiology. Her COPD is subsegmental atelectasis in the right middle and/or upper lobe, not seen previously. She has no infiltrates. No effusions. No pneumothorax or edema noted on her chest x-ray per Radiology. LABORATORY DATA: Lab Work: The patient's most recent lab work she had was today, 09/08/2019; CBC showed a white count elevated at 17.39. She was on high- dose steroids, were slowly titrated down, it was most likely from that. Hemoglobin stable at 13.9. Chemistry panel obtained today shows chloride slightly low at 97, BUN 26, otherwise unremarkable. The patient's brain natriuretic peptide on the inpatient was only at 165. ABGs the last ones were obtained on 4 L of nasal cannula that was on 09/03/2019; pH was at 7.46, pCO2 of 33, PO2 of 62, saturation was 93%. She has much improved since that time. IMPRESSION/PLAN: 1. Exacerbation of asthma. Plan: We will slowly titrate her prednisone. She got 40 mg orally this morning. I am going to give her 20 mg this evening and then we will give her 30 mg twice a day starting tomorrow morning. We will continue to wean down her oxygen as tolerated. We will continue with DuoNeb every 6 hours. She can have albuterol nebulizers in between her Duonebs as needed. We will continue with Robitussin DM every 6 hours scheduled. The patient received 5 days of azithromycin that has been discontinued at this time. I did start the patient on Pulmicort nebulizer twice a day yesterday. She seems to be quite a bit improved. 2. Anxiety. The patient does get anxious with her shortness of breath at times. She does have some Ativan that we can use as needed. 3. History of hyperlipidemia. Plan: Continue with fenofibrate 160 mg daily. She also does take fish oil at home. We have not given her that during the hospital stay. We do not have it available here in the hospital. 4. History of hypertension. Plan: Continue with hydrochlorothiazide 25 mg daily along with losartan 50 mg daily. She also does take aspirin 81 mg daily. 5. GI prophylaxis. Omeprazole 20 mg daily while she is in the hospital. 6. Influenza exposure. Plan: Continue with Tamiflu for 5 days prophylactically, she was exposed to a staff member that tested positive for influenza. 7. Hypokalemia. The patient's potassium is within normal range, yesterday it was 4.1. We will continue with potassium chloride 10 mEq daily. 8. DVT prophylaxis. Plan: We will continue with CADEN Harding while she is in bed. Her activity has been increasing with improvement in her shortness of breath. OVERALL PLAN: The patient was swung in the swing bed status today. She is much better today. Her lung sounds are much improved from yesterday. Her levels on her incentive spirometer has much improved today. She states she feels better. She is requiring less oxygen. Physical Therapy is going to see the patient and try to increase her strength and activity as tolerated to keep her oxygen sats within acceptable range. /[id number]/MODL MTDD
--- NOTE | 2019-09-08 14:58 | DISCH ---
ADMITTING DIAGNOSIS: Exacerbation of asthma. FINAL DIAGNOSIS: Exacerbation of asthma, improved. BRIEF HISTORY AND ESSENTIAL PHYSICAL FINDINGS: This is a 74-year-old female patient who lives at home with her . She has a long history of asthma. She was having shortness of breath at home. She came to the emergency room back on 08/31/2019 and they gave her some DuoNeb in the ER and she had improved, so they sent her home at that time. The patient went home and she was doing quite a few nebulizer treatments, but she continued to be very short of breath. She was still wheezy, so she came back to the emergency room. At that time, she was found to have low oxygen saturation, so she was admitted at that time. She was very wheezy. Now today, the patient states she is feeling much better. She can do much higher on her incentive spirometer. She has been getting up to the bathroom, walk around with less shortness of breath and coughing and less wheezing. SIGNIFICANT LABS XRAYS AND CONSULTATION FINDINGS: The patient's lab work on admission: White count was 9.69, hemoglobin was 12.3. D-dimer was negative at 169. ABG on admission showed a pH of 7.4, pCO2 of 36, PO2 at 63, bicarb 22, oxygen saturation 92% that was on 3 L nasal cannula. Comprehensive panel on admission showed potassium low at 3.2. Brain natriuretic peptide was 165. Repeat lab work that was today, 09/08/2019: White count is elevated at 17.39, this is due to high-dose steroid therapy; hemoglobin remained stable at 13.9; platelet count is slightly elevated at 500. Chemistry panel today shows chloride slightly low at 97, BUN elevated at 26, creatinine 0.56, GFR greater than 60. Alkaline phosphatase slightly low at 42, otherwise everything is unremarkable. The patient's chest x-ray that was obtained in the emergency room on admission, the impression reads no acute findings. She does have COPD, subsegmental atelectasis in the right middle and/or upper lobe, not seen previously. No infiltrates, effusion, pneumothorax, or edema seen by Radiology. The patient's influenza swab was negative. Sputum culture is consistent with oral-nasopharyngeal stefano. The patient's cough has mostly been dry. COURSE IN HOSPITAL WITH COMPLICATIONS IF ANY: The patient was very wheezy even up until yesterday. Now today, her lungs sounds are much improved. I do not hear any wheezes. She is able to do more on her into incentive spirometer. She is able to get move around the room with less coughing and shortness of breath today. Today, she seems to be doing much better. We have titrated her oxygen down. She was on 4 L, at this time I believe she is on 2.5 and doing better. CONDITION TREATMENT AND FINAL DISPOSITION ON DISCHARGE AND PROGNOSIS: Condition has improved. Final disposition: I am going to transfer to swing bed status today. IMPRESSION AND PLAN: 1. Exacerbation of asthma. Plan: We will continue to try to keep her sats greater than 90%. We will continue with oxygen per nasal cannula, try to wean her down as tolerated. We will continue with Robitussin DM every 6 hours, scheduled DuoNeb every 6 hours. We do have where she can have some albuterol nebulizers in between DuoNeb if needed. I am slowly titrating down her prednisone. I am going to decrease it. She got 40 mg this morning. I am going to give her 20 mg this evening and then 30 mg b.i.d. starting tomorrow morning. The patient was azithromycin for 5 days, that has been discontinued. I did start the patient yesterday on Pulmicort nebulizers twice a day. 2. Anxiety. The patient does get anxious with her shortness of breath. She has some Ativan that we can use as needed. 3. History of hyperlipidemia. Plan: Continue with fenofibrate 160 mg daily. 4. History of hypertension. Plan: Continue with hydrochlorothiazide 25 mg daily along with losartan 50 mg daily, aspirin 81 mg daily. 5. GI prophylaxis. Omeprazole 20 mg daily in the morning. 6. Influenza exposure. Plan: I think she has one more day of Tamiflu prophylactic due to exposure. 7. Hypokalemia. The patient's potassium has been on the low side, yesterday it was 4.1. We will continue the potassium chloride 10 mEq daily and continue to monitor potassium. 8. DVT prophylaxis. Plan: While she is in bed, we do have her wear SCDs, but she has been up more lately with less shortness of breath. OVERALL PLAN: I am going to swing the patient in a swing bed status today. Her lungs sounds are much improved. We have titrated her oxygen down somewhat. Physical Therapy is consulted and they will evaluate her today. We will try to have her increase her activity as tolerated without dropping her oxygen saturations. Continue her on Pulmicort nebulizers twice a day, DuoNeb 6 hours, and titrating prednisone down. /[id number]/MODL MTDD
[2019-09-08] MEDS ORDERED: predniSONE 20 MG Tab PO ONE (20:00)
[2019-09-09] MEDS ORDERED: predniSONE 10 MG Tab PO SCH (09:00)
== END 2019-09-08 11:38 | disposition swing bed (61) | DRG 203 ==
LOC: KA.ED 08:27 → KA.MS 10:48
PROVIDERS: ADMIT Physician Assistant Surgical; ATTEND Nurse Practitioner Family
DX: J45.901 Unspecified asthma with (acute) exacerbation (principal); H54.7 Unspecified visual loss; H91.90 Unspecified hearing loss, unspecified ear; I10 Essential (primary) hypertension; R09.02 Hypoxemia; E87.6 Hypokalemia; F41.9 Anxiety disorder, unspecified; J10.1 Influenza due to other identified influenza virus with other respiratory manifestations; E78.5 Hyperlipidemia, unspecified; Z79.51 Long term (current) use of inhaled steroids; Z79.82 Long term (current) use of aspirin; Z79.899 Other long term (current) drug therapy; Z87.891 Personal history of nicotine dependence; Z99.81 Dependence on supplemental oxygen; Z88.8 Allergy status to other drugs, medicaments and biological substances; Z88.1 Allergy status to other antibiotic agents
CPT/HCPCS: 36600; 71046; 80053; 82803; 85025; 87804 ×2; 93005; 96361; 96374; 99284; 99285; J1100; J7030; 36415; 80048; 83880; 85379; 87070; 87205; 94640; 97161-GP; A9270-GY; J0456; J2060; J2930; J3475; J7050; J7613-GY; J7620-GY

== ENCOUNTER 2019-09-08 10:35 | Inpatient (IN) | payer MEDICARE, BC ==
[2019-09-08] MEDS ORDERED: Acetaminophen 325 MG Tab PO PRN (11:41)
[2019-09-08] MEDS ORDERED: LORazepam 0.5 MG Tab PO PRN (11:41)
[2019-09-08] MEDS ORDERED: Albuterol/Ipratropium 3.0-0.5 MG/3 ML Neb Soln NEB PRN (11:45)
[2019-09-08] MEDS: guaiFENesin/Dextromethorphan 100-10 MG/5 ML Soln 5 ML Cup PO SCH ×3 (12:07→23:07)
[2019-09-08] MEDS: Albuterol 0.083% 2.5 MG/3 ML Neb Soln NEB PRN (14:08)
[2019-09-08] MEDS: Albuterol/Ipratropium 3.0-0.5 MG/3 ML Neb Soln NEB SCH ×2 (17:15→22:00)
[2019-09-08] MEDS: Budesonide 0.5 MG/2 ML Neb Susp NEB SCH (19:58)
[2019-09-08] MEDS ORDERED: predniSONE 20 MG Tab PO ONE (20:00)
[2019-09-08] MEDS: Fluticasone Propionate Nasal Spray 16 GM Bottle NASBOTH SCH (20:05)
[2019-09-08] MEDS: Montelukast 10 MG Tab PO SCH (20:07)
[2019-09-09] MEDS: Albuterol 0.083% 2.5 MG/3 ML Neb Soln NEB PRN ×2 (02:51→15:01)
[2019-09-09] MEDS: Albuterol/Ipratropium 3.0-0.5 MG/3 ML Neb Soln NEB SCH ×5 (05:30→22:53)
[2019-09-09] MEDS: guaiFENesin/Dextromethorphan 100-10 MG/5 ML Soln 5 ML Cup PO SCH ×2 (05:46→12:40)
[2019-09-09] MEDS: Budesonide 0.5 MG/2 ML Neb Susp NEB SCH ×2 (07:32→20:21)
[2019-09-09] MEDS: Omeprazole 20 MG Cap.CR PO SCH (07:46)
[2019-09-09] MEDS ORDERED: Fenofibrate 160 MG Tab PO SCH (09:00)
[2019-09-09] MEDS ORDERED: Potassium Chloride 10 MEQ Tab.ER PO SCH (09:00)
[2019-09-09] MEDS ORDERED: Aspirin 81 MG Tab.EC PO SCH (09:00)
[2019-09-09] MEDS ORDERED: Hydrochlorothiazide 25 MG Tab PO SCH (09:00)
[2019-09-09] MEDS ORDERED: Non-Formulary Medication 1 Each (Cholecalciferol (Vitamin D3) [Vitamin D3] 1,000 UNIT) PO SCH (09:00)
[2019-09-09] MEDS ORDERED: Losartan 25 MG Tab PO SCH (09:00)
[2019-09-09] MEDS: predniSONE 10 MG Tab PO SCH ×2 (09:09→20:17)
[2019-09-09] MEDS: Potassium Chloride 10 MEQ Tab.ER PO SCH (09:10)
[2019-09-09] MEDS: Oseltamivir 75 MG Cap PO SCH (09:10)
[2019-09-09] MEDS: Aspirin 81 MG Tab.EC PO SCH (09:10)
[2019-09-09] MEDS: Cholecalciferol (Vitamin D3) 25 MCG Tab PO SCH (09:10)
[2019-09-09] MEDS: Fenofibrate 160 MG Tab PO SCH (09:11)
[2019-09-09] MEDS: Losartan 25 MG Tab PO SCH (09:12)
[2019-09-09] MEDS: Fish Oil/Omega-3 Fatty Acids 1 Gm Cap PO SCH ×2 (09:12→10:08)
[2019-09-09] MEDS: Hydrochlorothiazide 25 MG Tab PO SCH (09:12)
[2019-09-09] MEDS: Fluticasone Propionate Nasal Spray 16 GM Bottle NASBOTH SCH ×2 (09:16→20:18)
[2019-09-09] MEDS: Montelukast 10 MG Tab PO SCH (20:18)
[2019-09-09] MEDS: guaiFENesin/Dextromethorphan 100-10 MG/5 ML Soln 5 ML Cup PO PRN (22:25)
[2019-09-10] MEDS: Albuterol/Ipratropium 3.0-0.5 MG/3 ML Neb Soln NEB SCH ×4 (05:05→22:54)
[2019-09-10] MEDS: Budesonide 0.5 MG/2 ML Neb Susp NEB SCH ×2 (07:14→20:25)
[2019-09-10] MEDS: Omeprazole 20 MG Cap.CR PO SCH (07:29)
[2019-09-10] MEDS ORDERED: predniSONE 10 MG Tab PO SCH (08:00)
[2019-09-10] MEDS: Losartan 25 MG Tab PO SCH (08:30)
[2019-09-10] MEDS: Fenofibrate 160 MG Tab PO SCH (08:30)
[2019-09-10] MEDS: Fish Oil/Omega-3 Fatty Acids 1 Gm Cap PO SCH (08:31)
[2019-09-10] MEDS: Aspirin 81 MG Tab.EC PO SCH (08:31)
[2019-09-10] MEDS: Fluticasone Propionate Nasal Spray 16 GM Bottle NASBOTH SCH ×2 (08:31→20:21)
[2019-09-10] MEDS: Potassium Chloride 10 MEQ Tab.ER PO SCH (08:32)
[2019-09-10] MEDS: Hydrochlorothiazide 25 MG Tab PO SCH (08:32)
[2019-09-10] MEDS: predniSONE 20 MG Tab PO SCH ×2 (08:32→20:21)
[2019-09-10] MEDS: Cholecalciferol (Vitamin D3) 25 MCG Tab PO SCH (08:33)
[2019-09-10] MEDS: Oseltamivir 75 MG Cap PO SCH (08:33)
[2019-09-10] MEDS: Albuterol 0.083% 2.5 MG/3 ML Neb Soln NEB PRN (14:29)
[2019-09-10] MEDS: Montelukast 10 MG Tab PO SCH (20:21)
[2019-09-11] MEDS: Albuterol/Ipratropium 3.0-0.5 MG/3 ML Neb Soln NEB SCH ×4 (05:23→22:38)
[2019-09-11] MEDS: Omeprazole 20 MG Cap.CR PO SCH (07:46)
[2019-09-11] MEDS: Budesonide 0.5 MG/2 ML Neb Susp NEB SCH ×2 (07:47→20:18)
[2019-09-11] MEDS: Potassium Chloride 10 MEQ Tab.ER PO SCH (08:36)
[2019-09-11] MEDS: predniSONE 20 MG Tab PO SCH ×2 (08:36→20:19)
[2019-09-11] MEDS: Oseltamivir 75 MG Cap PO SCH (08:36)
[2019-09-11] MEDS: Cholecalciferol (Vitamin D3) 25 MCG Tab PO SCH (08:36)
[2019-09-11] MEDS: Hydrochlorothiazide 25 MG Tab PO SCH (08:37)
[2019-09-11] MEDS: Losartan 25 MG Tab PO SCH (08:37)
[2019-09-11] MEDS: Fluticasone Propionate Nasal Spray 16 GM Bottle NASBOTH SCH ×2 (08:37→20:19)
[2019-09-11] MEDS: Fish Oil/Omega-3 Fatty Acids 1 Gm Cap PO SCH (08:37)
[2019-09-11] MEDS: Aspirin 81 MG Tab.EC PO SCH (08:37)
[2019-09-11] MEDS: Fenofibrate 160 MG Tab PO SCH (08:39)
[2019-09-11] MEDS: Montelukast 10 MG Tab PO SCH (20:19)
[2019-09-12] MEDS: Albuterol/Ipratropium 3.0-0.5 MG/3 ML Neb Soln NEB SCH ×2 (04:43→10:08)
[2019-09-12] MEDS: guaiFENesin/Dextromethorphan 100-10 MG/5 ML Soln 5 ML Cup PO PRN (04:59)
[2019-09-12] MEDS: Omeprazole 20 MG Cap.CR PO SCH (06:35)
[2019-09-12] MEDS: Budesonide 0.5 MG/2 ML Neb Susp NEB SCH (07:08)
[2019-09-12] MEDS: Potassium Chloride 10 MEQ Tab.ER PO SCH (09:34)
[2019-09-12] MEDS: Fenofibrate 160 MG Tab PO SCH (09:34)
[2019-09-12] MEDS: Cholecalciferol (Vitamin D3) 25 MCG Tab PO SCH (09:34)
[2019-09-12] MEDS: Oseltamivir 75 MG Cap PO SCH (09:34)
[2019-09-12] MEDS: Aspirin 81 MG Tab.EC PO SCH (09:34)
[2019-09-12] MEDS: Fluticasone Propionate Nasal Spray 16 GM Bottle NASBOTH SCH (09:35)
[2019-09-12] MEDS: Fish Oil/Omega-3 Fatty Acids 1 Gm Cap PO SCH (09:36)
[2019-09-12] MEDS: Hydrochlorothiazide 25 MG Tab PO SCH (09:44)
[2019-09-12] MEDS: Losartan 25 MG Tab PO SCH (09:44)
[2019-09-12 09:45] VITALS: BP 138/91
--- NOTE | 2019-09-12 11:21 | PCM.DCSUM1 ---
Discharge Summary - Hospital Course Diagnosis: Stroke: No - Discharge Data Discharge Date: 09/12/19 Discharge Disposition: Home, Self-Care 01 Condition: Fair - Referral to Home Health Primary Care Physician: Alma Cade PA-C - Patient Summary/Data Consults: Consultations 09/08/19 11:41 Consult to Physical Therapy [PT Evaluation and Treatment] [CONS] Routine - Patient Instructions Diet: Usual Diet as Tolerated Activity: As Tolerated Driving: Do Not Drive Showering/Bathing: May Shower Notify Provider of: Fever Other/Special Instructions: --Seek medical care if you become more shortness of breath or significant wheezing. --Avoid smoke irritants. --Small calorie rich dense foods frequent but small amounts. --Wear your oxygen at least 16 hours/ day. --The use of oxygen could make you dehydrated so stay well-hydrated - Discharge Plan *PRESCRIPTION DRUG MONITORING PROGRAM REVIEWED*: Not Applicable *COPY OF PRESCRIPTION DRUG MONITORING REPORT IN PATIENT AYE: Not Applicable Prescriptions/Med Rec: Budesonide [Pulmicort] 0.5 mg NEB BIDRT #60 neb LORazepam [Ativan] 0.5 mg PO BID PRN #30 tablet PRN Reason: Anxiety Home Medications: Home Meds Albuterol [Ventolin HFA] 2 puff INH Q4HR PRN 10/05/14 [History] Aspirin [Halfprin] 81 mg PO DAILY 10/05/14 [History] Cholecalciferol (Vitamin D3) [Vitamin D3] 1,000 unit PO DAILY 10/05/14 [History] Fenofibrate 160 mg PO DAILY 10/05/14 [History] Shelby-3/DHA/Epa/Fish Oil [Shelby-3 Fish Oil 1,000 MG Sfgl] 1,000 mg PO DAILY 04/13 [History] Potassium Chloride [K-Tab ER] 10 meq PO DAILY 10/05/14 [History] hydroCHLOROthiazide [Hydrochlorothiazide] 25 mg PO DAILY 10/05/14 [History] Losartan [Cozaar] 25 mg PO DAILY 01/05/15 [History] Colestipol [Colestipol HCl] 1 gm PO DAILY 03/07/18 [History] Albuterol/Ipratropium [DuoNeb 3.0-0.5 MG/3 ML] 3 ml NEB TID #30 ampule 09/12/19 [Rx] Budesonide [Pulmicort] 0.5 mg NEB BIDRT #60 neb 09/12/19 [Rx] LORazepam [Ativan] 0.5 mg PO BID PRN #30 tablet 09/12/19 [Rx] Referrals: Alma Cade PA-C [Primary Care Provider] - 09/16/19 1:00 pm - Discharge Summary/Plan Comment DC Time >30 min.: Yes Discharge Summary/Plan Comment: Final diagnosis COPD, significant asthma component Acute bronchitis Anxiety History summary Ayaka is a 74-year-old female who was admitted through the ED due to significant shortness of breath. Patient had presented to the ED on August 31 with similar symptoms and was treated with duo nebulizers and she improved in which she was sent home to self-care however she stated that her symptoms persisted despite using her albuterol "multiple times". Patient does have a long history of asthma however it appears that she does have a COPD component as well. At one point she was on home oxygen however she sent it back. She gets ill fall/wintertime with similar symptoms. No PFTs on file however does have current asthma control test. Does not do home PFTs. Remote smoker as a young child likely 1 to 2 years max ED evaluation Hypoxic POX 86% Tachycardia/Tachypneic ABG, pH 7.4, CO2 36, PO2 63, HCO3 23 Hospital SNF/swing bed course Improved however not quite making goals and was not able to go home without oxygen. She had significant anxiety which at times exacerbated her shortness of breath which was controlled with Ativan. Patient was exposed to staff forester member with influenza B subsequently placed on prophylactic Tamiflu. All her electrolytes were monitored and corrected as needed, she was given GI prophylaxis of PPI therapy. Patient ambulated in halls on 0L and sats did drop today to 86% and HR of 135. Ambulated on 1.5L and sats were 91-93% and HR 120s. Use her walker for ambulation for stability. 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 Patient's O2 sat on room air awake at rest was 89%,. Patient walked in the [place] with O2 sats decreasing to 86% and heart rate noted to be 136. Patient then walk the same distance with O2 sats of 90% on 1.5 L of oxygen heart rate noted to be 122--Home oxygen was set up upon discharge through [facility] [place] Medication additions/changes/adjustments upon discharge Pulmicort nebs, twice daily scheduled Change duo nebs from PRN to scheduled Lorazepam 0.5 mg p.o. 3 times daily as needed anxiousness Disposition --patient will be discharged from swing bed at [facility] on oxygen, --home oxygen was set up upon discharge through [facility] [place] --Seek medical care if you become more shortness of breath or significant wheezing. --Avoid smoke irritants --Small calorie rich dense foods frequent but small amounts --Wear your oxygen at least 16 hours/day Considerations at follow-up --Since new COPD component diagnosis likely could benefit from LABA/LAMA/ICS ( i.e. Trelegy Ellipa) in order to remove scheduled duo nebs and Pulmicort --Assess home oxygen compliance at least 16 hours/day - General Info Functional Status: Reports: Pain Controlled, Tolerating Diet, Ambulating, Incentive Spirometry. Denies: New Symptoms - Review of Systems General: Denies: Fever, Weakness, Fatigue HEENT: Reports: No Symptoms Pulmonary: Reports: Shortness of Breath (Much improved shortness of breath from her baseline) Cardiovascular: Reports: Dyspnea on Exertion. Denies: Chest Pain, Palpitations , Orthopnea, Lightheadedness Gastrointestinal: Reports: No Symptoms Skin: Denies: Cyanosis Neurological: Denies: Confusion Psychiatric: Reports: Anxiety - Patient Data Vitals - Most Recent: Last Vital Signs Temp 96.8 F L 09/12/19 06:34 Pulse 104 H 09/12/19 07:08 Resp 20 09/12/19 06:34 BP 138/91 H 09/12/19 09:44 Pulse Ox 92 L 09/12/19 09:30 Weight - Most Recent: 155 lb 6.4 oz I&O - Last 24 hours: Intake & Output 09/11/19 09/12/19 09/12/19 22:59 06:59 14:59 Intake Total 400 200 Output Total 300 Balance 100 200 Med Orders - Current: Current Medications Acetaminophen (Tylenol) 650 mg PO Q6H PRN PRN Reason: Pain Albuterol (Proventil Neb Soln) 2.5 mg NEB Q2H PRN PRN Reason: Shortness of Breath Last Admin: 09/10/19 14:29 Dose: 2.5 mg Albuterol/Ipratropium (Duoneb 3.0-0.5 Mg/3 Ml) 3 ml NEB Q6HRRT [facility] Last Admin: 09/12/19 10:08 Dose: 3 ml Aspirin (Halfprin) 81 mg PO DAILY [facility] Last Admin: 09/12/19 09:34 Dose: 81 mg Budesonide (Pulmicort) 0.5 mg NEB BIDRT [facility] Last Admin: 09/12/19 07:08 Dose: 0.5 mg Cholecalciferol (Vitamin D3) 25 mcg PO DAILY [facility] Last Admin: 09/12/19 09:34 Dose: 25 mcg Colestipol HCl (Colestipol Hcl) 1 gm PO DAILY [facility] Last Admin: 09/12/19 09:34 Dose: 1 gm Fenofibrate (Fenofibrate) 160 mg PO DAILY [facility] Last Admin: 09/12/19 09:34 Dose: 160 mg Fish Oil (Fish Oil) 1 gm PO DAILY [facility] Last Admin: 09/12/19 09:36 Dose: Not Given Fluticasone Propionate (Flonase) 1 gm NASBOTH BID [facility] Last Admin: 09/12/19 09:35 Dose: Not Given Guaifenesin/Phenylephrine HCl (Robitussin Dm) 10 ml PO Q6H PRN PRN Reason: Cough Last Admin: 09/12/19 04:59 Dose: 10 ml Hydrochlorothiazide (Hydrochlorothiazide) 25 mg PO DAILY [facility] Last Admin: 09/12/19 09:44 Dose: 25 mg Lorazepam (Ativan) 0.5 mg PO Q6H PRN PRN Reason: Anxiety Last Admin: 09/12/19 09:44 Dose: 0.5 mg Losartan Potassium (Cozaar) 25 mg PO DAILY [facility] Last Admin: 09/12/19 09:44 Dose: 25 mg Montelukast Sodium (Singulair) 10 mg PO BEDTIME [facility] Last Admin: 09/11/19 20:19 Dose: 10 mg Omeprazole (Omeprazole) 20 mg PO ACBREAKFAST [facility] Last Admin: 09/12/19 06:35 Dose: 20 mg Oseltamivir Phosphate (Tamiflu) 75 mg PO DAILY [facility] Stop: 09/14/19 15:01 Last Admin: 09/12/19 09:34 Dose: 75 mg Potassium Chloride (Klor-Con 10) 10 meq PO DAILY [facility] Last Admin: 09/12/19 09:34 Dose: 10 meq Discontinued Medications Albuterol/Ipratropium (Duoneb 3.0-0.5 Mg/3 Ml) 3 ml NEB QID PRN PRN Reason: Shortness of Breath Guaifenesin/Phenylephrine HCl (Robitussin Dm) 10 ml PO Q6H [facility] Last Admin: 09/09/19 12:40 Dose: Not Given Prednisone (Prednisone) 20 mg PO ONETIME ONE Stop: 09/08/19 20:01 Last Admin: 09/08/19 20:08 Dose: 20 mg Prednisone (Prednisone) 30 mg PO BID [facility] Stop: 09/09/19 21:30 Last Admin: 09/09/19 20:17 Dose: 30 mg Prednisone (Prednisone) 20 mg PO BID [facility] Stop: 09/11/19 21:30 Last Admin: 09/11/19 20:19 Dose: 20 mg Prednisone (Prednisone) 10 mg PO WITHBREAKFAST [facility] - Exam Quality Assessment: Reports: Supplemental Oxygen General: Reports: Alert, Oriented, Cooperative, No Acute Distress Lungs: Reports: Decreased Breath Sounds Cardiovascular: Reports: Tachycardia GI/Abdominal Exam: Soft. No: Distended Rectal (Female) Exam: Deferred Back Exam: Denies: CVA Tenderness (L), CVA Tenderness (R) Skin: Reports: Dry Psy/Mental Status: Reports: Alert, Normal Affect, Anxious (Mild anxiousness however improved)
[2019-09-12 13:25] VITALS: PULSE 100
== END 2019-09-12 12:45 | disposition home or self-care (01) | DRG 202 ==
LOC: KA.MS 11:38
PROVIDERS: ADMIT Physician Assistant; ATTEND Nurse Practitioner Family
DX: J20.9 Acute bronchitis, unspecified (principal); J44.0 Chronic obstructive pulmonary disease with (acute) lower respiratory infection; F41.9 Anxiety disorder, unspecified; E78.5 Hyperlipidemia, unspecified; I10 Essential (primary) hypertension; E87.6 Hypokalemia; Z88.8 Allergy status to other drugs, medicaments and biological substances
CPT/HCPCS: 94640; 97110-GP; 97161-GP; A9270-GY; J7613-GY; J7620-GY

== ENCOUNTER 2021-05-23 07:51 | Day surgery (SDC) | payer MEDICARE, BC ==
[2021-05-23] MEDS ORDERED: Sodium Chloride 0.9% 10 ML Syringe FLUSH PRN (08:00)
[2021-05-23] MEDS: Lactated Ringers 1,000 ML IV SCH (08:17)
[2021-05-23] MEDS ORDERED: Propofol 200 MG/20 ML SDV ONE (09:28)
[2021-05-23] MEDS ORDERED: EPINEPHrine 1:10,000 1 MG/10 ML Syringe ONE (09:29)
--- NOTE | 2021-05-23 11:26 | PCM.OPNOTE ---
- General Post-Op/Procedure Note Date of Surgery/Procedure: 05/23/21 Operative Procedure(s): Colonoscopy Findings: The colonoscopy was introduced up to 25 cm. Beyond this it was not possible to introduce the instrument due to fear of perforation. The scope was withdrawn. Examination up to this point was felt to be normal. There was a very small hyperplastic polyp at 10 cm. Pre Op Diagnosis: Left lower abdominal pain, constipation. Stricture at the sigmoid colon Anesthesia Technique: MAC Condition: Good
[2021-05-23 13:41] VITALS: BP 147/71; PULSE 102
--- NOTE | 2021-05-24 13:28 | OR ---
DATE OF SURGERY: 05/23/2021 SURGEON: Kalee Bynum MD PREOPERATIVE DIAGNOSIS: Possible stricture of the sigmoid colon. POSTOPERATIVE DIAGNOSIS: Suspect stricture of the sigmoid colon. PROCEDURE PROPOSED: Colonoscopy. OPERATION PERFORMED: Is attempted colonoscopy. PROCEDURE: Informed consent was obtained from the patient regarding the procedure. All possible complications were thoroughly discussed. Anesthesia was MAC. Continuous EKG and oximetry monitoring and intermittent blood pressure and respiratory monitoring were performed throughout the procedure. The patient was kept in the left lateral position. The lubricated colonoscope was introduced at the anus and advanced up to 25 cm. It was not possible to introduce this instrument beyond this level. We stopped the procedure for fear of perforation. through the instrument. A very small hyperplastic polyp was found at 10 cm. This was left undisturbed. Retroflexion technique was performed in the rectum. No additional findings were discovered. The scope was totally withdrawn. The patient tolerated the procedure well without difficulty. FINAL DIAGNOSIS: Suspect stricture of the sigmoid colon at 25 cm. /[id number]/MODL
== END 2021-05-23 11:20 | disposition home or self-care (01) ==
LOC: KA.SDS 07:51
PROVIDERS: ATTEND Family Medicine
DX: K63.5 Polyp of colon (principal); I10 Essential (primary) hypertension; E87.6 Hypokalemia; J42 Unspecified chronic bronchitis; E78.5 Hyperlipidemia, unspecified; F41.9 Anxiety disorder, unspecified; C54.1 Malignant neoplasm of endometrium; Z79.899 Other long term (current) drug therapy; Z88.8 Allergy status to other drugs, medicaments and biological substances; Z98.890 Other specified postprocedural states; Z87.891 Personal history of nicotine dependence
CPT/HCPCS: 00812; J2704; J7120

== ENCOUNTER 2023-04-21 09:16 | Emergency (ER) | payer BC, MEDICARE, OTHER ==
[2023-04-21 09:29] VITALS: BP 138/68; PULSE 109
[2023-04-21 09:59] LABS: BASOPHILS ABSOLUTE AUTO 0.07 10^3/uL (0.00-0.10); BASOPHILS PERCENT AUTO 0.6 % (0.0-1.0); EOSINOPHILS ABSOLUTE AUTO 0.12 10^3/uL (0.10-0.30); HEMOGLOBIN 14.3 g/dL (12.0-16.0); IMMATURE GRAN ABSOLUTE AUTO 0.03 10^3/uL (0.00-0.50); IMMATURE GRAN PERCENT AUTO 0.2 % (0.0-5.0); LYMPHOCYTES ABSOLUTE AUTO 1.92 10^3/uL (1.00-4.00); MEAN CORPUSCULAR HGB CONC 32.5 g/dL (32.0-36.0); MEAN CORPUSCULAR VOLUME 92.4 fL (82.0-92.0); MONOCYTES ABSOLUTE AUTO 0.61 10^3/uL (0.10-0.80); MONOCYTES PERCENT AUTO 5.1 % (2.0-8.0); NEUTROPHILS ABSOLUTE AUTO 9.26 10^3/uL (2.50-7.00); NEUTROPHILS PERCENT AUTO 77.1 % (50.0-70.0); PLATELET COUNT,PLT 408 10^3/uL (150-400); RED BLOOD CELL COUNT 4.76 10^6/uL (3.80-5.50); RED CELL DISTRIBUTION WIDTH 12.3 % (11.5-14.5); WHITE BLOOD CELL COUNT,WBC 12.01 10^3/uL (5.00-10.00)
[2023-04-21 10:19] LABS: ALBUMIN 3.53 g/dL (3.40-5.00); ANION GAP 10.6 mmol/L (5-15); BILIRUBIN TOTAL 0.3 mg/dL (0.2-1.0); CARBON DIOXIDE,CO2 29.9 mmol/L (21.0-32.0); CREATININE 0.63 mg/dL (0.51-1.17); EST CRCL DRUG DOSING (CG) 63.82 mL/min; POTASSIUM,K 3.5 mmol/L (3.5-5.1); PROTEIN TOTAL,TP 8.1 g/dL (6.4-8.2)
[2023-04-21 10:23] LABS: INFLUENZA A NAA NEGATIVE (NEGATIVE); INFLUENZA B NAA NEGATIVE (NEGATIVE); RESPIRATORY SYNCYTIAL VIR NAA NEGATIVE (NEGATIVE)
[2023-04-21 10:24] LABS: CORONAVIRUS COVID-19 NAA NEGATIVE (NEGATIVE)
== END 2023-04-21 11:00 | disposition home or self-care (01) ==
LOC: KA.ED 09:16
DX: J20.9 Acute bronchitis, unspecified (principal); J45.998 Other asthma; I10 Essential (primary) hypertension; Z88.8 Allergy status to other drugs, medicaments and biological substances; Z20.822 Contact with and (suspected) exposure to COVID-19; Z79.899 Other long term (current) drug therapy
CPT/HCPCS: 0241U; 36415; 71045; 80053; 84484; 85025; 99283

== ENCOUNTER 2024-05-17 09:17 | Emergency (ER) | payer OTHER ==
[2024-05-17 09:43] LABS: BASOPHILS ABSOLUTE AUTO 0.07 10^3/uL (0.00-0.10); BASOPHILS PERCENT AUTO 0.4 % (0.0-1.0); EOSINOPHILS ABSOLUTE AUTO 0.14 10^3/uL (0.10-0.30); EOSINOPHILS PERCENT AUTO 0.8 % (1.0-3.0); HEMATOCRIT 43.2 % (37.0-47.0); HEMOGLOBIN 14.3 g/dL (12.0-16.0); IMMATURE GRAN ABSOLUTE AUTO 0.02 10^3/uL (0.00-0.50); IMMATURE GRAN PERCENT AUTO 0.1 % (0.0-5.0); LYMPHOCYTES ABSOLUTE AUTO 2.35 10^3/uL (1.00-4.00); LYMPHOCYTES PERCENT AUTO 13.8 % (20.0-40.0); MEAN CORPUSCULAR HEMOGLOBIN 30.2 pg (27.0-31.0); MEAN CORPUSCULAR HGB CONC 33.1 g/dL (32.0-36.0); MEAN CORPUSCULAR VOLUME 91.3 fL (82.0-92.0); MONOCYTES ABSOLUTE AUTO 1.25 10^3/uL (0.10-0.80); MONOCYTES PERCENT AUTO 7.4 % (2.0-8.0); NEUTROPHILS ABSOLUTE AUTO 13.16 10^3/uL (2.50-7.00); NEUTROPHILS PERCENT AUTO 77.5 % (50.0-70.0); PLATELET COUNT,PLT 439 10^3/uL (150-400); RED BLOOD CELL COUNT 4.73 10^6/uL (3.80-5.50); RED CELL DISTRIBUTION WIDTH 12.4 % (11.5-14.5); WHITE BLOOD CELL COUNT,WBC 16.99 10^3/uL (5.00-10.00)
[2024-05-17 09:52] LABS: ALBUMIN 3.43 g/dL (3.40-5.00); BILIRUBIN TOTAL 0.6 mg/dL (0.2-1.0); CALCIUM 9.9 mg/dL (8.7-10.3); CARBON DIOXIDE,CO2 29.9 mmol/L (21.0-32.0); CREATININE 0.52 mg/dL (0.51-1.17); EST CRCL DRUG DOSING (CG) 79.48 mL/min; POTASSIUM,K 3.9 mmol/L (3.5-5.1); PROTEIN TOTAL,TP 8.1 g/dL (6.4-8.2)
[2024-05-17] MEDS: guaiFENesin/Dextromethorphan 100-10 MG/5 ML Soln 5 ML Cup PO ONE (10:27)
[2024-05-17 10:30] LABS: APPEARANCE,URINE SLIGHTLY CLOUDY (CLEAR); BILIRUBIN,URINE NEGATIVE (NEGATIVE); COLOR,URINE DARK YELLOW (YELLOW); GLUCOSE,URINE NEGATIVE (NEGATIVE); KETONES,URINE NEGATIVE (NEGATIVE); LEUKOCYTE ESTERASE,URINE MODERATE (NEGATIVE); NITRITE,URINE NEGATIVE (NEGATIVE); OCCULT BLOOD,URINE TRACE-LYSED (NEGATIVE); PH,URINE 7.5 (5.0-9.0); PROTEIN,URINE NEGATIVE (NEGATIVE)
[2024-05-17 10:36] LABS: RBC,URINE 0-5 /HPF (0-5)
[2024-05-17 10:37] LABS: BACTERIA,URINE FEW /HPF (NONE TO FEW); EPITHELIAL CELLS,URINE FEW /LPF; WBC,URINE 20-30 /HPF (0-5)
[2024-05-17 10:55] LABS: INFLUENZA A NAA NEGATIVE (NEGATIVE); INFLUENZA B NAA NEGATIVE (NEGATIVE); RESPIRATORY SYNCYTIAL VIR NAA NEGATIVE (NEGATIVE)
[2024-05-17 10:56] LABS: CORONAVIRUS COVID-19 NAA NEGATIVE (NEGATIVE)
[2024-05-17 11:25] VITALS: BP 127/82; PULSE 100
== END 2024-05-17 11:22 | disposition home or self-care (01) ==
LOC: KA.ED 09:17
DX: J20.9 Acute bronchitis, unspecified (principal); N30.00 Acute cystitis without hematuria; I10 Essential (primary) hypertension; Z90.710 Acquired absence of both cervix and uterus; Z79.899 Other long term (current) drug therapy; Z88.1 Allergy status to other antibiotic agents; Z88.8 Allergy status to other drugs, medicaments and biological substances
CPT/HCPCS: 0241U; 36415; 71045; 80053; 81001; 83605; 85025; 87040; 87086; 99285; 99283